=== PATIENT | female | born 1955 | race Caucasian/White ===

== ENCOUNTER 2019-03-08 21:46 | Inpatient (IN) ==
[2019-03-08] MEDS ORDERED: VANCOMYCIN 1 GM/NS 1 GM/250 ML IVPB IV ONE (22:35)
[2019-03-08] MEDS ORDERED: NS 1,000 ML IV ONE (22:35)
[2019-03-08] MEDS ORDERED: ZOSYN 4.5 GM in NS 100 ML IV ONE (22:35)
[2019-03-09 00:26] LABS: BASO# 0.03 X1000 (0.0-0.2); BASO% 0.2 % (0.0-0.8); HEMATOCRIT 40.6 % (37.0-47.0); HEMOGLOBIN 12.5 g/dL (12.0-16.0); IMM GRAN% 0.7 % (0.0-0.5); LYMPH# 2.24 X1000 (1.2-3.4); LYMPH% 15.7 % (20.5-51.1); MCH 27.9 PG (27-31); MCHC 30.8 g/dL (33-37); MCV 90.6 FL (81-99); MONO# 0.89 X1000 (0.11-0.59); MONO% 6.2 % (1.7-9.3); MPV 9.3 FL (7.4-10.4); NEUT% 77.2 % (42.2-75.2); PLT 265 X1000 (130-400); RBC 4.48 XMIL (4.2-5.4); RDW 16.5 % (11.5-14.5); WBC 14.26 X1000 (4.8-10.8)
[2019-03-09 00:31] LABS: INR 1.33; PROTIME 17.6 Seconds (11.0-16.0)
[2019-03-09 00:32] LABS: PTT 34.5 Seconds (22.3-41.8)
[2019-03-09 00:51] LABS: ALB/GLOB RATIO 1.3; ALBUMIN 3.4 g/dL (3.5-5.0); CALCIUM 7.5 mg/dL (8.8-10.2); CREATININE 2.9 mg/dL (0.5-0.9); TOTAL BILIRUBIN 0.87 mg/dL (0.20-1.00); TOTAL PROTEIN 6.1 g/dL (6.3-8.3)
[2019-03-09 00:55] LABS: POTASSIUM 6.5 mmol/L (3.5-5.1)
[2019-03-09] MEDS ORDERED: NS 1,000 ML IV ONE ×2 (01:05→01:32)
[2019-03-09 01:11] LABS: CK INDEX 2.1 (0.0-2.5); CK-MB 34.89 ng/mL (0.0-5.0)
[2019-03-09] MEDS ORDERED: DUONEB (A & A) INH ONE (01:38)
[2019-03-09] MEDS ORDERED: CALCIUM GLUCONATE 1 GM in NS 50 ML IV ONE (01:38)
[2019-03-09] MEDS ORDERED: D50W SYRINGE IV ONE (01:40)
[2019-03-09] MEDS ORDERED: HUMULIN R IV ONE (01:41)
[2019-03-09] MEDS ORDERED: KAYEXALATE PR ONE (01:48)
[2019-03-09] MEDS ORDERED: ALBUTEROL 0.5% INH CONC FOR HYPERKALEMIA INH ONE (02:05)
--- NOTE | 2019-03-09 02:10 | PROVIDER DOCUMENTATION ---
This chart was entered by Octavia Rodriguez Scribe, acting as scribe for Reid Singer MD. [facility]-General Adult - General Chief Complaint: Post Op Complaint Stated Complaint: post op gb Time Seen by Provider: 03/08/19 22:28 Source: EMS Allergies/Adverse Reactions: Patient Allergies Allergy/AdvReac Type Severity Reaction Status Date / Time No Known Allergies Allergy Verified 03/08/19 22:43 Home Medications: Home Medication List Medication Instructions Recorded Confirmed Last Taken Type Diazepam [Valium] 10 mg PO BID 09/27/17 03/09/19 11/07/17 08:00 History Doxepin [Sinequan] 10 mg PO QHS 09/27/17 03/09/19 11/06/17 20:00 History Duloxetine [Cymbalta] 30 mg PO DAILY 09/27/17 03/09/19 11/06/17 10:30 History Ergocalciferol (Vitamin D2) 50,000 unit PO Q7D 09/27/17 03/09/19 11/05/17 History [Vitamin D] Gabapentin 600 mg PO BID 09/27/17 03/09/19 11/07/17 08:00 History Levothyroxine [Synthroid] 150 microgm PO DAILY 09/27/17 03/09/19 11/07/17 08:00 History Hydrocodone/APAP 10 mg/325 mg 1 ea PO Q4H PRN PRN #20 tab 11/16/17 03/09/19 Unknown Rx [Schoenchen-10] Methocarbamol 1 tab PO TID 03/09/19 03/09/19 Unknown History - History of Present Illness -Gen Adult Nature of Presenting Problems: 63yof presents to ED by EMS cc unconscious for hrs prior to EMS arriving. EMS re ports said pt had gallbladder surgery at [facility] on 03/07/19 she is hard to wake up today after taking pain pills. 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 pt was responsive initially here but then start becoming more confused. report pain in the incision site, denies other complaints. Location of Pain/Injury: reports: upper body (RUQ) Pain Radiation: reports: no radiation Quality of Pain: reports: aching Severity: reports: moderate Onset/Duration: reports: unsure Timing: reports: still present, intermittent Context/Activities at Onset: reports: other (had gallbladder surgery yesterday) Modifying Factors: worse with: movement Similar Symptoms Previously?: No Recently seen or treated by another doctor?: Yes Review of Systems - Adult - REVIEW OF SYSTEMS - ADULT Constitutional: reports: no symptoms reported Eyes: reports: no symptoms reported Ears, Nose, Mouth & Throat: reports: no symptoms reported Cardiovascular: reports: no symptoms reported Respiratory: reports: shortness of breath Gastrointestinal: reports: see HPI, abdominal pain. denies: diarrhea, vomiting Genitourinary: reports: no symptoms reported Musculoskeletal: reports: no symptoms reported Integumentary: reports: no symptoms reported Neurological: reports: see HPI Past History - Adult - PAST MEDICAL HISTORY-ADULT Review of Records: reports: Old Records Reviewed, Nursing Assessment Review, Medications Reviewed, Social history reviewed & non-contributory. Major Childhood Illnesses: reports: denies history Cardiovascular: reports: denies history Respiratory: reports: denies history Gastrointestinal: reports: denies history Obstetrical/Gynecological: reports: denies history Genitourinary: reports: denies history Musculoskeletal: reports: denies history Neurological: reports: denies history Endocrine/Immune: reports: denies history Other Conditions: reports: denies history - IMMUNIZATION STATUS Childhood Immunizations: See Nurse Assessment Flu Vaccine: See Nurse Assessment - FAMILY HISTORY Family History: reviewed, not pertinent Physical Exam-General - PHYSICAL EXAM-ADULT Initial Vital Signs Reviewed: Yes - CONSTITUTIONAL General Appearance: obese, lethargic - EYES Eyes: PERRL/EOMI. negative: meningismus, photophobia - HEAD, EARS, NOSE, MOUTH & THROAT HENMT: moist mucous membranes, normal ENT inspection, TMs normal, pharynx normal - NECK Neck: non-tender, full range of motion, supple, normal inspection. negative: carotid bruit - RESPIRATORY Respiratory: chest non-tender, lungs clear, normal breath sounds. negative: crackles, rales, rhonchi, stridor, wheezing - CARDIOVASCULAR Cardiovascular: normal peripheral pulses, regular rate, rhythm, no edema, other (hypotensive) - GASTROINTESTINAL (ABDOMEN) Abdominal Exam: normal bowel sounds, soft, tenderness (RUQ around surgery site). negative: non tender, guarding, rigid, rebound - LYMPHATIC Lymphatic: negative: enlargement, striations - MUSCULOSKELETAL Back Exam: normal inspection, no CVA tenderness, no vertebral tenderness. negative: ecchymosis, scoliosis Extremity: non-tender, other (cold to touch). negative: deformity, erythema - SKIN Integumentary: normal color, normal turgor, diaphoresis, other (cold to touch) - NEUROLOGIC Neurologic: other (confused) - PSYCHIATRIC Psych/Mental Status: other (confused) Progress - PLAN OF CARE/RESULTS Progress/Plan/Lab Results: Vital Signs - 8 hr 03/08/19 22:13 Temperature 98.5 F Pulse Rate 73 Respiratory Rate 22 Blood Pressure 57/25 Orders Category Date Time Status Cardiac Monitoring DIRECTED Care 03/08/19 22:34 Active IV Insertion ORDERED Care 03/08/19 22:34 Completed Notify MD of + Sepsis Screen NOW Care 03/08/19 22:34 Active Notify Physician As Ordered Care 03/08/19 22:34 Active CHEST-1 VIEW [RAD] Stat Exams 03/08/19 22:34 Taken BLOOD CULTURE [BLDCUL] Stat Lab 03/08/19 22:34 Uncollected CBC WITH DIFF [HEME] Stat Lab 03/08/19 22:34 Uncollected CK PROFILE [SP CHEM] Stat Lab 03/08/19 22:34 Uncollected COMPREHENSIVE METABOLIC PANEL [CHEM] Stat Lab 03/08/19 22:34 Uncollected LACTATE, PLASMA [CHEM] Q3H Lab 03/08/19 22:45 Uncollected LACTATE, PLASMA [CHEM] Q3H Lab 03/09/19 01:45 Uncollected LACTATE, PLASMA [CHEM] Q3H Lab 03/09/19 04:45 Uncollected PROTIME WITH INR [COAG] Stat Lab 03/08/19 22:34 Uncollected PTT [COAG] Stat Lab 03/08/19 22:34 Uncollected TROPONIN T Stat Lab 03/08/19 22:34 Uncollected URINALYSIS W/POSS RFLX CULT [URINALYSIS] Stat Lab 03/08/19 22:34 Uncollected 0.9% Sodium Chloride Inj [Ns] 1,000 ml Med 03/08/19 22:35 Active IV 999 mls/hr Piperacillin/Tazobactam [Zosyn] 4.5 gm Med 03/08/19 22:35 Active 0.9% Sodium Chloride Inj [Ns] 100 ml IV NOW Vancomycin 1 gm/Ns Med 03/08/19 22:35 Active 1 gm in 250 ml IV NOW Oxygen Device Stat Oth 03/08/19 22:34 Active EKG [EKG] Stat Ther 03/08/19 22:38 Ordered Pt came in with AMS, BP 57/25. SEPSIS protocol initiated, fluid vanc and zosyn ordered. Central line placed by myself with Dr. Vic galdamez supervision. Labs come back showed elevated troponin, cardiology Dr. Melgoza consulted and he said troponin high due to sepsis and CARIN. T wave inversion in V2, V3 not significant. K elevated, Ca gluconate/Albuterol/IV insulin/D50W ordered. Pt care discussed with the hospitalist Dr. Sutherland in the ER and pt accepted. liver enzyme elevated likely due to hypoperfusion. Pt condition is critical with multiorgan failure. BP improving with fluid, will consider pressor if BP MAP drop below 65. Dr. Sutherland will order CT abdomen and pelvis Pt care discussed with the supervising physician Dr. Vic galdamez. Result Diagrams: 03/09/19 07:15 03/09/19 12:31 - EKG 1 Time of EKG reading by physician:: 22:42 EKG Read and Signed by:: Reid Singer Rate: 72 Rhythm: NSR QRS: normal ST Wave: normal Prior EKG Comparison: changes noted Comments: T wave inversion V2, V3 Procedures - CENTRAL LINE Consent Form Signed?: No (AMS) Time-Out Verification Completed?: Yes Central Line Lumen: triple Central Line Procedure Prep: Hand Hygeine Performed, Kit Utilized, Chloraprep, Sterile Body Drape Placed Patient Position (To prevent Air Embolism): Trendelenburg (SC/IJ) Central Line Position: internal jugular (R) Ultrasound Guided?: Yes Hat, mask, sterile gown, & sterile gloves worn by physician?: Yes Site scrubbed vigorously for 30 seconds? (Groin: 2 min): Yes Anesthetic: 1% Volume of Anesthetic (ml's): 4 Post Procedure: Sutured in place, Sterile field maintained, BioPatch placed, Sterile dressing applied, Blood aspirated from each lumen, Placement verfied by XRAY Complications: none Procedure Comment: Under supervision of Dr. Vic Galdamez Departure - Departure Date of Disposition Decision: 03/09/19 Time of Disposition Decision: 01:49 DIAGNOSIS: MODS (multiple organ dysfunction syndrome), Elevated troponin, CARIN (acute kidney injury) Altered mental status Qualifiers: Altered mental status type: unspecified Qualified Code(s): R41.82 - Altered mental status, unspecified Disposition: ADMITTED INPATIENT 09 Certified Medical Emergency: Emergent Condition: Critical - Critical Care Note This patient required my direct & personal management of CC.: Yes Total Time (mins): 60 Critical Care Statement: This patient required my direct personal management to treat or rule out processes, the absence of which, could potentiallly result in sudden, clinically significant life or limb threatening deterioration. Attestation - Physician/ CLARENCE Attestation Patient care was provided by Advanced Practice Provider:: No The physician spent face to face time with patient:: Yes Advanced Practice Provider documentation review:: Supervising physician onsite and consulted in the evaluation and care of this patient. The physician did have a face to face encounter with the patient. This chart was documented by the indicated scribe, (Octavia Rodriguez Scribe) and accurately reflects the services I performed and decisions made by me, Reid Sanders MD, as attested by the provider's signature.
[2019-03-09] MEDS ORDERED: NS 1,000 ML IV SCH (02:30)
--- NOTE | 2019-03-09 03:06 | HISTORY AND PHYSICAL ---
PRIMARY CARE PHYSICIAN: Arthur Mckinney MD. HISTORY OF PRESENT ILLNESS: This is a chronically ill-appearing 63-year-old female who is pretty much confused and not well responding, and I was called by the ER doctor because this patient has apparently been unconscious for 6 hours prior to EMS arriving. The patient is confused and not able to provide any pertinent information. All the H and P was done with an ER note and the ER doctor information provided. Apparently, the EMS reports that the said the patient had a cholecystectomy performed 2 days ago [facility] by Dr. Vic Ohara. Apparently she was given some pain medication and she was really hard to wake up today. Apparently the EMS reported that they gave 2 doses of Narcan and the patient woke up. The patient was responsive initially, but then started becoming more confused with pain in the incision site, so we were called for admission. But as was mentioned before she is not able to tell me any pertinent information. PAST MEDICAL HISTORY: Apparently she has been referred from Dr. Zelaya's office for poorly differentiated pulmonary adenocarcinoma. PAST SURGICAL HISTORY: Not possible to obtain. REVIEW OF SYSTEMS: Not possible to obtain. SOCIAL HISTORY: Not possible to obtain. ALLERGIES: No known drug allergies. PHYSICAL EXAMINATION: VITAL SIGNS: Temperature 98.5 degrees, heart rate 88, respiratory rate 16, blood pressure 94/64, O2 saturation 100% on 2 L nasal cannula. GENERAL: This is a chronically ill-appearing 63-year-old female lying in bed in no acute distress. CARDIOVASCULAR: S1 and S2 heard. No murmurs, gallops or rubs. Regular rate and rhythm. RESPIRATORY: Coarse breath sounds noted in both pulmonary bases. The patient is not using any accessory muscles or having work of breathing. ABDOMEN: Is a little bit distended. Mildly tender to palpation in the right upper quadrant. A small incision is noted in the abdomen, clean and noninfected. No signs of peritoneal irritation. EXTREMITIES: No clubbing, cyanosis or edema. Peripheral pulses present in both legs. NEUROLOGICAL: The patient is definitely obtunded and does not answer any questions. Speech is not coherent. She moves all 4 extremities spontaneously. LABORATORY DATA: White cell count 14.26, hemoglobin 12.5, hematocrit 40.6, platelets 265,000. Sodium 137, potassium 6.52, chloride 104, creatinine 1.9, with AST and ALT elevated at 570 and 300. Troponin is positive at 0.340. ASSESSMENT AND PLAN: 1. Metabolic encephalopathy. 2. Multiorgan failure including acute kidney injury and transaminitis with elevated troponins. This patient in brief has had surgery and she was found unresponsive so she was brought to the emergency department. I do not know about what has caused this problem with mental status. The differential is multifactorial. The patient is not able to provide any more information, so we have a patient with acute kidney injury with elevated potassium 6.5, with elevated creatinine of 2.9. Also we have a patient with elevated AST and ALT as well elevation of troponins. I think all this is caused by hypotension, we are going to start aggressive fluid resuscitation and we are going to send this patient to the intensive care unit. We will see if with hydration her creatinine improves some. We will continue to check BMP. We think that the elevated liver function tests are related to hypotension so as we mentioned before we will continue with IV fluids. Because of recent surgery and signs of sepsis, I prefer to go ahead and do a CT of the thorax, abdomen and pelvis and we will go from there. Will start antibiotics because I think she has developed septic shock so Zyvox and Zosyn renally dosed will be provided. Urine and blood cultures ordered. Will consult Pulmonary and Nephrology. 3. Hyperkalemia. We will provide 1 dose of Kayexalate rectal. 4. For transaminitis we are going to continue checking CMP daily and we will go from there. 5. Critical care time with this patient was 35 minutes. cc: MD HAIM Lewis
--- NOTE | 2019-03-09 05:39 | Diag Imaging Result Doc PS360 ---
EXAM: CHEST-1 VIEW HISTORY: sepsis TECHNIQUE: Single view COMPARISON: 11/23/2017 FINDINGS: Poor inspiratory effort. The heart is enlarged. There is central vascular prominence. There are no infiltrates. No effusion identified. IMPRESSION: Cardiomegaly with central vascular prominence. No definite pneumonia. Electronically signed by Alfie Narayan 03/09/2019 5:36 AM
--- NOTE | 2019-03-09 05:42 | Diag Imaging Result Doc PS360 ---
EXAM: CHEST-PORTABLE HISTORY: Central Line Placement TECHNIQUE: Chest single view COMPARISON: 10:45 PM on 03/08/2019 FINDINGS: Interval placement of a right jugular line. The tip overlies the right atrium. No pneumothorax. Poor inspiratory effort. Heart is prominent and there are central vascular distention. IMPRESSION: No postprocedural pneumothorax. Electronically signed by Alfie Narayan 03/09/2019 5:39 AM
[2019-03-09 06:13] LABS: URINE SOURCE CATH
[2019-03-09 06:19] LABS: BILIRUBIN URINE NEGATIVE (NEGATIVE); BLOOD URINE MODERATE (NEGATIVE); COLOR YELLOW; GLUCOSE URINE NEGATIVE (NEGATIVE); KETONE URINE NEGATIVE (NEGATIVE); LEUKOCYTES URINE NEGATIVE (NEGATIVE); NITRITE URINE NEGATIVE (NEGATIVE); PH URINE 5.5; PROTEIN URINE 100 mg/dL (NEGATIVE); SP GRAVITY URINE 1.016; TURBIDITY URINE HAZY (CLEAR); UROBILINOGEN URINE NORMAL (NORMAL)
[2019-03-09] MEDS ORDERED: HEPARIN SUBQ SCH (06:23)
[2019-03-09] MEDS ORDERED: ZOFRAN IV PRN (06:23)
[2019-03-09 06:43] LABS: UR EPITHELIAL CELLS <10 /HPF (<10); URINE BACTERIA NEGATIVE /HPF; URINE RBC <10 /HPF (<10); URINE WBC <10 /HPF (<10)
--- NOTE | 2019-03-09 07:01 | EKG Report ---
Test Performed on : 03/08/2019 10:42:42 PM Test Reason : unresponsive Blood Pressure : / mmHG Vent. Rate : 072 BPM Atrial Rate : 073 BPM P-R Int : 000 ms QRS Dur : 082 ms QT Int : 416 ms P-R-T Axes : 000 065 -26 degrees QTc Int : 455 ms Accelerated Junctional rhythm. ST & T wave abnormality, consider inferior ischemia ST & T wave abnormality, consider anterior ischemia Abnormal ECG When compared with ECG of 10-OCT-2017 09:36, Junctional rhythm. has replaced Sinus rhythm. T wave inversion now evident in Inferior leads T wave inversion now evident in Anterior leads Unconfirmed Result
[2019-03-09 07:12] LABS: URINE CASTS NONE SEEN; URINE CRYSTALS NONE SEEN; URINE SMALL ROUND CELLS NONE SEEN; URINE YEAST NONE SEEN
[2019-03-09] MEDS: NS 1,000 ML IV SCH ×2 (07:24→13:30)
[2019-03-09 07:43] LABS: BASO# 0.01 X1000 (0.0-0.2); BASO% 0.1 % (0.0-0.8); HEMOGLOBIN 11.9 g/dL (12.0-16.0); IMM GRAN# 0.05 X1000 (0.0-0.04); IMM GRAN% 0.4 % (0.0-0.5); LYMPH# 2.18 X1000 (1.2-3.4); LYMPH% 16.8 % (20.5-51.1); MCH 28.6 PG (27-31); MCHC 31.3 g/dL (33-37); MCV 91.3 FL (81-99); MONO# 0.93 X1000 (0.11-0.59); MONO% 7.2 % (1.7-9.3); MPV 9.5 FL (7.4-10.4); NEUT# 9.83 X1000 (1.4-6.5); NEUT% 75.5 % (42.2-75.2); PLT 239 X1000 (130-400); RBC 4.16 XMIL (4.2-5.4); RDW 16.3 % (11.5-14.5)
[2019-03-09] MEDS: ZYVOX 600 MG/D5W 600 MG/300 ML IVPB IV SCH ×2 (07:44→20:45)
[2019-03-09] MEDS: ZOSYN 2.25 GM in NS 50 ML IV SCH ×2 (07:44→12:28)
--- NOTE | 2019-03-09 07:44 | Diag Imaging Result Doc PS360 ---
EXAM: CT THORAX/ABD/PELVIS W/O CON 03/09/2019 HISTORY: recent cholecystectomy, sepsis, multiorgan failure TECHNIQUE: This exam was performed using automated exposure control, adjustment of mA or kV according to patient size, and/or use of iterative reconstruction technique. COMMENT: The current examination is compared with the previous study of the chest dated 06/29/2018, there are no previous abdominal studies. There are calcifications present in the aorta and right brachiocephalic artery. There is a right internal jugular central venous catheter with its tip in the right atrium. There is some increase in the heart size since the previous examination which appears to be largely due to dilatation of the right atrium. There are some prominent prevascular nodes including one adjacent to the aortic arch on the left measuring up to 19 mm. There is a aorticopulmonary window node which measures over 2.3 cm. The latter has not changed significantly since the previous study. There are some calcifications in the subcarina which is presumably due to granulomatous disease. There are patchy opacities present in both lower lobes particularly the right lower lobe. There is some volume loss in the right middle lobe. These findings were not present on the previous examination of 06/29/2018. There has been right upper lobectomy. There are some spondylotic changes in the thoracic spine as well as rib deformities on the right which are probably a result of the previous thoracotomy. ABDOMEN/pelvis without contrast: There has been recent cholecystectomy. There appears to be some small seroma or hematoma formation in the gallbladder fossa. This is also present in the anterior pararenal space on the right. There is no evidence of nephrolithiasis or hydronephrosis. There is retained solid and liquid contents in the stomach. Some fluid is present in the duodenal bulb. The small bowel is not distended. There is some fluid and contrast present in the colon. The appendix is not distended. The abdominal aorta is calcified but not distended. At the time of the thoracic study of 06/29/2018, which was performed with contrast, there was considerable calcific and noncalcific atheroma in the infrarenal abdominal aorta with narrowing of the lumen by at least 50%. The spleen and adrenal glands are not enlarged. The pancreas is grossly normal in appearance given the lack of contrast. There is a small amount of gas present in the anterior abdominal wall which is presumably due to the recent laparoscopic procedure. There is no evidence of free fluid. There has been previous hysterectomy. The urinary bladder is slightly distended. There is no evidence of mucosal thickening in the bladder. There is a fairly prominent external iliac node on the right measuring almost 12 mm in AP dimension. This is of uncertain significance. There are some degenerative disc and facet changes in the lumbar spine. No acute bony abnormalities are demonstrated. IMPRESSION: 1. Atelectasis versus pneumonia in the lower lobes particularly the right lower lobe. Stable mediastinal adenopathy. 2. Postsurgical changes of recent cholecystectomy. Atherosclerotic changes in the aorta particularly in the infrarenal abdominal aorta. 3. Slight distention of the stomach and duodenal bulb. The possibility of gastroparesis should be considered. No evidence of bowel obstruction. 4. Increased heart size. Electronically signed by Jesu Sofia 03/09/2019 7:42 AM
[2019-03-09 08:15] LABS: ALBUMIN 3.1 g/dL (3.5-5.0); CALCIUM 7.4 mg/dL (8.8-10.2); CREATININE 2.9 mg/dL (0.5-0.9); TOTAL BILIRUBIN 0.77 mg/dL (0.20-1.00); TOTAL PROTEIN 6.2 g/dL (6.3-8.3)
[2019-03-09] MEDS: LEVOPHED 8 MG in D5 1/2 NS 250 ML IV SCH (08:20)
[2019-03-09 09:22] LABS: BE -14.4 mmoll (-3.0-3.0); BLOOD TYPE ARTERIAL; HCO3-(ACT) 13.6 mmoll (20.0-26.0); PO2(98.6) 89 mmHg (60-100); SAMPLE BLOOD; SAO2 97.3 % (95.0-100.0)
[2019-03-09 09:23] LABS: ALLEN TEST YES; O2HB 94.5 % (95.0-99.0); THB 13.5 g/dL (11.5-17.4)
[2019-03-09 09:27] LABS: pH(98.6) 6.98 (7.35-7.45)
[2019-03-09 09:28] LABS: MODALITY PRB; PCO2(98.6) 78 mmHg (35-45)
[2019-03-09] MEDS: ALBUTEROL 0.5% INH CONC FOR HYPERKALEMIA INH SCH ×2 (09:40→12:45)
[2019-03-09] MEDS: D50W SYRINGE IV SCH ×2 (09:47→12:29)
[2019-03-09] MEDS: HUMULIN R IV SCH ×2 (09:48→12:28)
--- NOTE | 2019-03-09 10:23 | PROGRESS NOTE ---
DATE: 03/09/2019 SUBJECTIVE: Ms. Palacios is a 63-year-old, female who is seen today in the ICU. The son was at the bedside at the time of the encounter. Ms. Palacios is not able to give us any interim history. Per the nursing staff, she has been stable since admission. However, the blood pressure was persistently low so she was started on Levophed. Per the daughter, Ms. Palacios had laparoscopic gallbladder 3 days ago, and was sent home at about 4:00 in the evening. She was doing well. Last time, the son saw her was yesterday at about midday. He could tell that the mother was a little bit slow in reaction, and could tell that she had taken some medication maybe for pain. Later on in the evening, the father called him saying that he could not arouse the mother. EMS brought her. I understand she was given 2 doses of Narcan which woke her up, and then she went back to sleep. OBJECTIVE: Currently, her vitals blood pressure was 110/80, and this is on Levophed, pulse of 83, respirations 15, temperature is 97.7 degrees. General: Ms. Palacios is a 63-year-old, female. She is in bed. She does not seems to be in any distress. HEENT: Mucosa is pink and moist. Anicteric. Acyanotic. Neck: Neck is supple and short. Chest: There is good air entry bilaterally. There are no crepitations. No rhonchi. Cardiovascular: Regular rate and rhythm. No murmurs, no rubs, no gallops. GI: Abdomen is soft and is distended. Bowel sounds are present, but hypoactive. There are some dressings over the anterior abdominal wall suggestive of the recent laparoscopic surgery. Extremities: No pedal edema. Distal pulses are present. 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 Eyes are closed. Will only respond with barely slightly eye opening to extreme painful stimulation. She will also barely move the lower extremities to extreme painful stimulation. No verbal response. Current. LABORATORY DATA: WBC is down to 13.00, hemoglobin is 11.9, and platelet count of 239,000. Chemistry is also reviewed. Potassium is 6.0, creatinine is 2.9. AST is up to 1110, AST is 437. Troponin is coming down. So far, blood cultures are still pending. CURRENT MEDICATIONS: Include Zyvox and Zosyn as antimicrobials. IMAGING STUDIES: A CT scan of the chest, abdomen, and pelvis does show atelectasis versus pneumonia. Postsurgical changes of recent cholecystectomy. There is atherosclerotic changes in the aorta particularly in the infra renal abdominal aorta. The abdomen is slightly distended, possibility of gastroparesis and increased heart size. ASSESSMENT: 1. Persistent hypotension on presentation, presumably due to medication side effects (pain medication). The patient has been fluid resuscitated. She is also on vasopressor and because possibility of infection cannot be totally ruled out she is being covered with broad- spectrum IV antibiotics. 2. Altered mental status, presumably prescription drug side effects (encephalopathy) superimposed ischemic brain injury is also a possibility. We are going to continue neurological evaluation as ordered. 3. Acute kidney injury, most likely ATN from ischemic injury to the kidneys. Nephrology has been consulted. We are going to continue monitoring. 4. Transaminitis likely due to ischemic liver disease. We will also get GI to evaluate the patient. 5. Troponin elevation most likely due to demand mismatch. Troponin seems to be trending down. 6. Acute hypercarbic respiratory failure, pCO2 is up to 78. We are going to put the patient on BiPAP and repeat the ABG in about 4 hours. Pulmonary Medicine has been consulted. 7. Morbid obesity with suspicion of obesity hypoventilation syndrome. 8. Recent status post laparoscopic cholecystectomy is noted. PLAN: In general, I think Ms. Palacios is presumed to have overdosed on her pain medication. Subsequently, she became altered and might have aspirated and developed aspiration pneumonia. Blood pressure was remarkably low for extended period of time. As a consequence, she has developed what we think is an ischemic liver injury and ischemic kidney injury and possibly ischemic/anoxic brain injury. We are going to continue with antibiotic coverage, fluid resuscitation, avoid any nephrotoxic and hepatotoxic medications. Get the other subspecialties to evaluate her. I have spoken to the son who was at the bedside at the time of the encounter. Critical time 45 minute cc: MD HAIM Monteiro
[2019-03-09] MEDS ORDERED: DIPRIVAN 1% ONE (12:22)
--- NOTE | 2019-03-09 12:31 | Diag Imaging Result Doc PS360 ---
EXAM: CHEST-PORTABLE 03/09/2019 HISTORY: Verify ET TECHNIQUE: AP portable at 1221 COMMENT: Endotracheal tube is at the thoracic inlet. There is a right internal jugular central venous catheter with its tip in the right atrium. The inspiration is less optimal than on 03/09/2019 at 0127. There is some atelectasis particularly in the left lower lobe. IMPRESSION: Poor inspiration. Left lower lobe atelectasis. Electronically signed by Jesu Sofia 03/09/2019 12:28 PM
[2019-03-09 13:12] LABS: ALBUMIN 2.8 g/dL (3.5-5.0); CALCIUM 6.9 mg/dL (8.8-10.2); CREATININE 3.3 mg/dL (0.5-0.9); PHOSPHORUS 6.8 mg/dL (2.7-4.5); POTASSIUM 4.2 mmol/L (3.5-5.1)
[2019-03-09] MEDS ORDERED: ATIVAN IV ONE (14:08)
[2019-03-09] MEDS ORDERED: MORPHINE IV ONE (14:08)
[2019-03-09] MEDS: MAXIPIME 1 GM in NS 50 ML IV SCH (14:10)
[2019-03-09] MEDS: SODIUM BICARBONATE 8.4% 150 MEQ in D5W 1,000 ML IV SCH (14:10)
--- NOTE | 2019-03-09 14:14 | ECHO REPORT ---
ORDER DATE: 03/09/2019 INTERPRETING PHYSICIAN: Dr. Justin Ann ECHOCARDIOGRAPHIC MEASUREMENTS: 1. Interventricular septum 1.1. 2. Left ventricular posterior wall 1.1. 3. Diastolic diameter 3.7. 4. Right ventricle 5. 5. Left atrium 3.8. 6. Aorta 3.1. SUMMARY OF THE 2-DIMENSIONAL IMAGIN. Right ventricle is dilated with severely reduced right ventricular systolic function. Right ventricle apex is akinetic. Cannot rule out a small clot. 2. Normal left ventricular cavity size. Estimated ejection fraction of 60%. 3. Aortic valve leaflets are trileaflet. 4. Mitral valve was normal. 5. Tricuspid valve was normal. 6. There is no aortic stenosis or regurgitation. 7. There is mild mitral regurgitation. 8. Mild pulmonary regurgitation. 9. Mild tricuspid regurgitation. 10. Peak velocity across the tricuspid valve was 3.5 m/sec. 11. Pulmonary artery systolic pressure of 60 mmHg. 12. Aortic valve leaflets are trileaflet. 13. There is no pericardial effusion. cc: MD Justin Rosenbaum MD
--- NOTE | 2019-03-09 14:39 | Diag Imaging Result Doc PS360 ---
EXAM: CT HEAD W/O CONTRAST 03/09/2019 HISTORY: Possible bleed TECHNIQUE: This exam was performed using automated exposure control, adjustment of mA or kV according to patient size, and/or use of iterative reconstruction technique. COMMENT: There are no previous studies available for comparison. There is no evidence of bleed mass effect or abnormal extra-axial fluid collection. There is some head tilt producing asymmetry in the images. The calvarium is intact. The visualized paranasal sinuses are clear. IMPRESSION: No definite evidence of acute intracranial disease. Electronically signed by Jesu Sofia 03/09/2019 2:37 PM
[2019-03-09] MEDS ORDERED: DILUENT IV ONE ×3 (14:53)
[2019-03-09] MEDS ORDERED: NS IV ONE ×3 (14:53)
[2019-03-09] MEDS ORDERED: ACTIVASE IV ONE ×4 (14:53→15:00)
[2019-03-09] MEDS ORDERED: MISC. PHARMACY COMMUNICATION SCH (15:00)
[2019-03-09] MEDS ORDERED: STERILE WATER IV ONE (15:00)
[2019-03-09 15:16] LABS: INR 1.32; PROTIME 17.5 Seconds (11.0-16.0)
--- NOTE | 2019-03-09 15:55 | NEPHROLOGY CONSULTATION ---
DATE: 03/09/2019 REASON FOR CONSULTATION: Acute kidney injury and hyperkalemia. HISTORY OF PRESENT ILLNESS: Ms. Palacios is not able to give any history. Chart reflects that she had outpatient laparoscopic cholecystectomy 2 days prior to admission. She was brought into the emergency room by EMS because of unresponsiveness. Her initial evaluation in the emergency room found her blood pressure 57/25 with heart rate 73, respiration 22. Initial laboratory data found potassium 6.5 with creatinine 2.9. She has been treated with volume resuscitation and empiric therapy for presumed sepsis, as well as possible narcotic-induced coma. Her potassium was treated appropriately, and she has been given IV fluids. In this context, her potassium is down normal, but her creatinine has risen from 2.9 to 3.3. Urine output recorded at 500 mL. She had imaging performed on admission which disclosed bibasilar atelectasis, but no hydronephrosis. Significant atherosclerosis in the distal abdominal aorta. PAST MEDICAL HISTORY: As above. She also has a history of obesity, hypertension, possible adenocarcinoma of the lung. MEDICATIONS: Reviewed. ALLERGIES: None listed. SOCIAL HISTORY: Otherwise not obtainable. FAMILY HISTORY: Otherwise not obtainable. PHYSICAL EXAMINATION: Vital Signs: Blood pressure 132/60, heart rate 89, respirations 16, afebrile. Generally: No acute distress. Obtunded. HEENT: Will moan and move her eyes and open her eyes with vigorous stimulus, but does not verbalize. Conjunctivae are pink. Pupils are equal. Neck: Neck veins are not visible. Trachea is midline. Heart: Regular. Lungs: Equal. No crackles. Abdomen: Soft, nontender. Bowel sounds are present. Extremities: Have 2+ edema. No clubbing or cyanosis. IMPRESSION: Acute kidney injury. Presumed. Volume resuscitation as appropriate. She has had appropriate imaging. Her potassium has been corrected appropriately. No changes today. cc: Bladimir Key MD
--- NOTE | 2019-03-09 16:27 | GASTROENTEROLOGY CONSULTATION ---
DATE: 03/09/2019 REASON FOR CONSULTATION: Elevated liver function tests. HISTORY OF PRESENT ILLNESS: This is a 63-year-old female who recently had laparoscopic cholecystectomy on 03/07/[address] Ohara. Surgery was done as an outpatient. She was at home recovering. She was taking some pain medication postoperatively. The son had checked on the patient and noticed that she was drowsy and not long after she was found to be unconscious, brought in by EMS. Patient was given Narcan. She did respond but became more confused. She had to be intubated. She is currently on mechanical ventilation. During workup patient was found to have elevated liver function tests, AST 1110, ALT 437, total bilirubin 0.77, alkaline phosphatase 89. PAST MEDICAL HISTORY: Obtained from the chart. Apparent pulmonary adenocarcinoma following with Dr. Zelaya. PAST SURGICAL HISTORY: Recent cholecystectomy on 03/07/2019. Full details of medical history unavailable at present time. There was no family at the bedside. Patient is intubated. ALLERGIES: No known drug allergies. HOME MEDICATIONS: Valium 10 mg twice a day, Sinequan 10 mg every night, Cymbalta 30 mg daily, vitamin D every 7 days, gabapentin 600 mg twice a day, Vilas 10 every 4 hours as needed, Synthroid 150 mcg daily, methocarbamol 1 tablet 3 times a day, Robaxin 750 mg 3 times a day. REVIEW OF SYSTEMS: Per chart. PHYSICAL EXAMINATION: Vital Signs: Temperature is 97.7 degrees, pulse 89, respirations 16 per mechanical ventilation, blood pressure 132/60. General: The patient is intubated on mechanical ventilation. She does arouse. She does mouth some words. She does follow commands. Cardiovascular: Regular rate and rhythm. Respiratory: Lung sounds coarse otherwise good breath sounds. Abdomen: Some tenderness. Patient has recent laparoscopic cholecystectomy. She has incisions intact with dressings intact. Extremities: No lower extremity edema noted. DIAGNOSTIC RESULTS: Laboratory. Hematology. WBC 13.00, hemoglobin 11.9, hematocrit 38.0, MCV 91.3, platelets 239,000. Chemistry. Sodium 137, potassium 4.2, chloride 105, CO2 17, BUN 34, creatinine 3.3, glucose 204, calcium 6.9, phosphorus 6.8, AST 1110, ALT 437, alkaline phosphatase 89, troponin 0.408. CT scan of the abdomen and pelvis showing atelectasis versus pneumonia. Slight distention of the stomach and duodenal bulb, possible gastroparesis. Postsurgical changes of recent cholecystectomy. Head CT showed no definite acute intracranial process. ASSESSMENT AND PLAN: 1. Hypotension. Patient on vasopressors. 2. Recent altered mental status. 3. Acute kidney injury. 4. Respiratory failure intubated on mechanical ventilation. 5. Transaminitis most likely to shock liver, ischemic liver injury. We will continue to monitor. Recommend continue resuscitation efforts. Will follow her liver function tests. In the meantime will order hepatitis profile, REANNA and iron level. Further plans to be made according to her progress. I have discussed this case with Dr. Frausto. Further plans will be made as needed. Thank you for this consultation. Dictated by COURTNEY Eisenberg for Mk Frausto MD cc: COURTNEY Rao MD
--- NOTE | 2019-03-09 16:29 | CONSULTATION ---
DATE OF CONSULTATION: 03/09/2019 IMPRESSION: 1. Mild nonspecific elevation in troponin. 2. Shock, probably cardiogenic, with echocardiography demonstrating prominent right ventricular enlargement with right ventricular systolic dysfunction with severe right ventricular hypokinesis. Given recent surgery and current electrocardiogram, I strongly suspect she may very well have had a pulmonary embolus postoperatively. 3. Elevated serum transaminases, probably related to shock. 4. Acute renal failure, probably also related to shock. RECOMMENDATIONS: 1. Patient's clinical presentation and strong suspicion for pulmonary embolus was discussed with Dr. Miller. Given acute renal failure, pursuit of contrasted chest CT is not in her best interest. There was some concern about her mental status, and it is preferred that a head CT scan be obtained to rule out any intracranial hemorrhage, after which consideration will be given to thrombolytic therapy. I strongly suspect pulmonary embolus and athrombic therapy appears to be warranted. 2. Agree with empiric coverage for possible sepsis, as you are doing. HISTORY: This 63-year-old white female with past history of non-small cell lung cancer treated with right upper lobectomy in October 2017 and recent laparoscopic cholecystectomy a few days ago was admitted to the emergency room last night with mental status changes. Patient had cholecystectomy 2 days ago via laparoscopic approach. She has had some narcotic analgesics postoperatively. She developed some confusion and drowsiness that was persistent. EMS was summoned. She had some partial response to Narcan. However, this was only transient, and patient also became confused with increased pain in the incision site. She manifested persistent hypotension, which did not respond very well to fluid administration and intravenous pressor agents were initiated. The patient developed respiratory failure that did not improve with BiPAP, and ultimately had to be intubated and started on mechanical ventilation. Urine output has been very low and lab suggests acute renal failure. She also has significantly elevated transaminases and shock liver is also suspected. She is presently on a ventilator in ICU on intravenous Levophed. Troponins were mildly elevated in nonspecific range, prompting Cardiology consultation. Upon my arrival, notification was made that her echocardiography demonstrated right ventricular enlargement with severe right ventricular hypokinesis. PAST MEDICAL HISTORY: 1. Non-small cell lung cancer. Patient is status post right upper lobectomy October 2017. Lymph nodes reportedly negative. Patient's stage was T2N0. 2. Obesity. 3. Status post recent laparoscopic cholecystectomy. ALLERGIES: She has no known drug allergies. MEDICATIONS PRIOR TO ADMISSION: As listed. SOCIAL HISTORY: Not able to obtain. FAMILY HISTORY: Negative for premature coronary disease. REVIEW OF SYSTEMS: Review of systems not able to obtain given patient on ventilator and sedate. PHYSICAL EXAMINATION: General: Reveals an obese, middle-aged female in no apparent distress, who is sedate on ventilator. Vital signs: Blood pressure 132/60, heart rate 89, oxygen saturation 96% on ventilator. HEENT exam: Mucous membranes are moist. Neck: Supple. There is central line and right internal jugular. Jugular venous distention not appreciated. Chest: Demonstrates coarse breath sounds bilaterally. Cardiac Exam: Reveals a regular rate and rhythm without appreciable murmur or gallop. Abdomen: Soft. Bowel sounds audible. Extremities: Demonstrate trace bilateral edema. LABORATORY DATA: Includes a white blood cell count 13.1, hematocrit 38.0, hemoglobin 11.9, platelet count 239. Sodium 137, potassium 4.2, chloride 105, carbon dioxide 17. BUN 34, creatinine 3.3, glucose 204. Initial CPK 0.34; followup CPK 0.408. CPK 1656, CPK MB 34.89, CPK MB index 2.1. AST 1110, ALT 437. IMAGING STUDIES: A 12 lead EKG demonstrates sinus rhythm with nonspecific ST and T-wave abnormality. There is an S evident in lead 1 with a Q inverted T-wave in lead 3. cc: Jackson Wagner MD
--- NOTE | 2019-03-09 16:45 | PROGRESS NOTE ---
DATE: 03/09/2019 SUBJECTIVE: Late morning today I had a conversation with pulmonary medicine, Dr. Langford. He had reviewed the patient and recommended intubation because of multiple comorbidities at the same time and the fact that the patient is both metabolic and respiratory acidotic and she was still not coherent enough, extremely stuporous. He thinks the patient will not be able to protect the airway for now, so she was successfully intubated. I also got a call from Cardiology about the report of the echocardiogram, which seems to suggest that the right ventricle is akinetic and a small clot could not be could not be ruled out. Taking into consideration that Ms. Palacios has been extremely hypotensive and the fact that the troponins are slightly elevated and having undergone surgery in the last 3 days it is reasonable to assume that she has had a massive PE versus a right heart massive heart attack. Her EKG did make suggestion of some remarkable T-waves inversion in the inferior leads. I discussed the case also with Dr. Ordonez, the bell spinner on consult services, who also reviewed all the information and the ancillary testing and both of us were in agreement that Ms. Palacios most likely has suffered from a massive PE and that needed to be treated as such which would mean she will need thrombolytic because she has been hemodynamically unstable and after that we will start her on heparin drip. Unfortunately Ms. Palacios has also acute kidney injury with creatinine up to in the 3 days so we cannot do a CTA of the lungs. We will do a venous studies of the lower extremities and we will also do a D-dimer. I ordered a CT scan of the head to rule out any bleed and which has come back negative. I have also contacted the pharmacy about the ideal dosing of the alteplase. I have reached out to Ms. Palacios's son (Erik Palacios) who is the same son who was at the bedside this morning at the time of my encounter with the patient. I did narrate to him about the current clinical information at hand, including the fact that the patient was hypotensive for majority of the time and that she is on a pressor and that she has been intubated and also the echocardiogram findings and the thought process that she might have a massive PE or a right heart NM and the need for a thrombolytic as well as anticoagulant. Since that is only a tentative that seems to be reasonable at this point. I also did mention to him the risk of using thrombolytic in her especially the fact that she has just done surgery. Mr. Erik Palacios was okay with the use of the lytics. I have also spoken with Dr. Guzman who is the surgeon senior functional analyst today. I notified him about Ms. Palacios and the fact that we think has she had a massive PE and the idea of wanting to use lytics. I did inquire from him if from surgery standpoint, he thought it was okay since the patient has had a laparoscopic gallbladder removal and he thinks it should be fine if there is a clear clinical indication for the lytics to be used. He did not see any contraindication from the surgery standpoint. PLAN: We are going to give 100 mg of alteplase to run for 2 hours after which we will start the patient on heparin drip. I have already discussed this with the pharmacist as well and she will be monitoring the medication. CRITICAL TIME SPENT: 1 hour. cc: Rajan Miller MD MTDLan
[2019-03-09] MEDS ORDERED: HEPARIN 25,000 UNITS/D5W 25,000 UNIT/250 ML IV.SOLN IV SCH (17:00)
[2019-03-09] MEDS ORDERED: HEPARIN IV ONE (17:00)
--- NOTE | 2019-03-09 18:07 | Diag Imaging Result Doc PS360 ---
EXAM: US RENAL 2 (RETROPER) COMPLETE - 03/09/2019 HISTORY: paula/arf TECHNIQUE: Bilateral renal ultrasound COMPARISON: None. FINDINGS: There are artifacts which limit detail. The right kidney measures 13.3 x 5.4 x 5.7 cm in size, with cortical thickness of approximately 1.2 cm. The left kidney measures 12.5 x 5.4 x 6.4 cm in size, with cortical thickness of approximately 1 cm. There is no discrete renal mass, stone, or hydronephrosis identified. The urinary bladder is decompressed by Mack catheter and is not evaluated. IMPRESSION: No visible renal abnormality. Electronically signed by Tarik Alvarez 03/09/2019 6:05 PM
[2019-03-10] MEDS: DILAUDID IV PRN ×4 (01:54→17:50)
[2019-03-10] MEDS: MAXIPIME 1 GM in NS 50 ML IV SCH ×2 (02:20→14:29)
[2019-03-10] MEDS: LEVOPHED 8 MG in D5 1/2 NS 250 ML IV SCH ×2 (02:50→17:51)
[2019-03-10] MEDS: SODIUM BICARBONATE 8.4% 150 MEQ in D5W 1,000 ML IV SCH ×2 (02:51→13:22)
[2019-03-10 04:49] LABS: ALLEN TEST YES; BE -4.3 mmoll (-3.0-3.0); BLOOD TYPE ARTERIAL; HCO3-(ACT) 21.6 mmoll (20.0-26.0); METHB 0.9 % (0.0-1.5); O2(CT) 13.2 mL/dL (15.0-23.0); O2HB 98.1 % (95.0-99.0); PCO2(98.6) 31 mmHg (35-45); PO2(98.6) 206 mmHg (60-100); SAMPLE BLOOD; SRATE 14 BPM; THB 9.2 g/dL (11.5-17.4); TVOL 600 mL; pH(98.6) 7.41 (7.35-7.45)
[2019-03-10 04:51] LABS: MODALITY VENTILATOR
[2019-03-10 06:39] LABS: INR 1.21; PROTIME 16.3 Seconds (11.0-16.0)
[2019-03-10 06:57] LABS: ALB/GLOB RATIO 0.9; ALBUMIN 2.3 g/dL (3.5-5.0); CREATININE 4.5 mg/dL (0.5-0.9); MAGNESIUM 1.4 mg/dL (1.5-2.7); POTASSIUM 2.8 mmol/L (3.5-5.1); TOTAL BILIRUBIN 0.64 mg/dL (0.20-1.00)
--- NOTE | 2019-03-10 07:16 | Diag Imaging Result Doc PS360 ---
EXAM: CHEST-PORTABLE HISTORY: resp failure TECHNIQUE: Portable chest single view COMPARISON: 03/09/2019 FINDINGS: No change in the endotracheal tube or right jugular line. The lungs are better expanded on the current study. There are small pleural effusions with basilar atelectasis. There may be underlying infiltrates. The heart is enlarged. IMPRESSION: Mild interval improvement. Electronically signed by Alfie Narayan 03/10/2019 7:14 AM
[2019-03-10 07:47] LABS: CALCIUM 6.9 mg/dL (8.8-10.2)
[2019-03-10 07:52] LABS: BASO# 0.01 X1000 (0.0-0.2); BASO% 0.1 % (0.0-0.8); EOS# 0.02 X1000 (0.0-0.7); EOS% 0.2 % (0.0-10.0); HEMATOCRIT 30.6 % (37.0-47.0); IMM GRAN# 0.03 X1000 (0.0-0.04); IMM GRAN% 0.4 % (0.0-0.5); LYMPH# 1.93 X1000 (1.2-3.4); LYMPH% 24.1 % (20.5-51.1); MCH 27.8 PG (27-31); MCHC 32.7 g/dL (33-37); MONO# 0.71 X1000 (0.11-0.59); MONO% 8.9 % (1.7-9.3); MPV 9.5 FL (7.4-10.4); NEUT# 5.32 X1000 (1.4-6.5); NEUT% 66.3 % (42.2-75.2); PLT 190 X1000 (130-400); RDW 15.7 % (11.5-14.5); WBC 8.02 X1000 (4.8-10.8)
[2019-03-10] MEDS: ZYVOX 600 MG/D5W 600 MG/300 ML IVPB IV SCH ×2 (09:06→19:41)
[2019-03-10] MEDS ORDERED: MAGNESIUM SULFATE 2 GM/S.W.I. 2 GM/50 ML IVPB IV ONE (09:34)
[2019-03-10] MEDS: HEPARIN 25,000 UNITS/D5W 25,000 UNIT/250 ML IV.SOLN IV SCH (09:38)
--- NOTE | 2019-03-10 10:16 | CONSULTATION ---
DATE OF CONSULTATION: 03/09/2019 REQUESTING PROVIDER: Dr. Justin Sutherland. REASON FOR CONSULTATION: Multiorgan failure. HISTORY OF PRESENT ILLNESS: This is a 63-year-old female with a medical history of adenocarcinoma of the right upper lobe, morbid obesity, chronic cholecystitis, anxiety, arthritis, autoimmune disorder, depression, osteoporosis, and thyroid disease. She presented to the ER last night via EMS with unresponsiveness for 6 hours prior to EMS arriving. On the way to the ER, EMS gave 2 doses of Narcan and patient woke up. Upon arrival to the ER, patient was responsive initially, but then started to become more confused. Initial workup revealed multiorgan failure including acute kidney injury, transaminitis, and elevated troponins, hyperkalemia, and shock. She has been admitted to the ICU for further evaluation and management. She was on nasal cannula initially. She desaturated early this morning, and later she was put on a Ventimask. Currently, patient is on partial nonrebreather. Her oxygen saturation stayed in low 90s. She partially opened her eyes with a sternal rub, but she did not talk. Patient's son is at the bedside. He reported that patient responded slowly yesterday noon and he suspected that patient was overdosed with her pain medication. PAST MEDICAL AND SURGICAL HISTORY (from the [facility]): 1. 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 Ohara. Mediastinal study with biopsy on 10/11/2017, by Dr. Ohara, and CT-guided lung biopsy on 09/27/2017, by Dr. Sands. 2. Morbid obesity. Current BMI 43.03. 3. Chronic cholecystitis, with mucosal erosion and cholesterolosis, status post recent cholecystectomy on 03/07/2019. 4. Anxiety disorder. 5. Arthritis. 6. Autoimmune disorder. 7. Depression. 8. Osteoporosis. 9. Thyroid disease. 10. Complete hysterectomy. 11. Tubal ligation. SOCIAL HISTORY: Patient lives at home with her . Their son, who is at the bedside, lives close to them and checks on them regularly. She had smoked tobacco up to half a pack per day since age 18, and quit 2 years ago after diagnosed with lung cancer. She has no history of alcohol or illicit drug use. FAMILY HISTORY: Per the eChart, patient's mother had alcohol abuse, arthritis, bladder problems, depression, diabetes, and thyroid problems. Father had diabetes and heart disease. ALLERGIES: No known drug allergies. REVIEW OF SYSTEMS: Unable to be obtained. PHYSICAL EXAMINATION: Vital Signs: Temperature 97.7 degrees, blood pressure 73/53, pulse 73, respiratory rate 15, oxygen saturation 96% on partial nonrebreather. General: Chronically ill appearing, resting in bed with no acute distress noted, morbidly obese. HEENT: Atraumatic. Trachea midline. Mucosa pink and moist. Respiratory: Even and unlabored. Symmetrical excursion. Auscultation reveals no air entry in right upper lobe and coarse breathing sounds throughout all lung patiño. Cardiovascular: Regular rate and rhythm. Gastrointestinal: Bowel sounds normoactive in all 4 quadrants. Soft, distended. Extremities: Edema of bilateral lower extremities. No cyanosis, no clubbing. Bilateral lower extremities cold to touch. Dorsalis pedis diminished bilaterally. Neurologic: Stuporous. Opens eyes with sternal rub, but not talking. LAB DATA: White blood cells 13.00, hemoglobin 11.9, hematocrit 38.0, platelet 239,000. Sodium 137, potassium 6.5, chloride 104, carbon dioxide 7, BUN 26, creatinine 2.9, glucose 126, troponin 0.297, AST 1110, ALT 437. ABG: PH 6.98, pCO2 78, pO2 89, HC03 13.6, base excess -14.4, oxyhemoglobin 94.5, on partial rebreather with FiO2 80%. IMAGING DATA: CT thorax, abdomen, and pelvis without contrast revealed atelectasis versus pneumonia in the lower lobes, particularly the right lower lobe, stable mediastinal adenopathy, postsurgical change of recent cholecystectomy, atherosclerotic changes in the aorta, particularly in the infrarenal abdominal aorta, slight distention of the stomach and duodenal bowel. The possibility of gastroparesis should be considered. No evidence of bowel obstruction, and increased heart size. ASSESSMENT: This is a 63-year-old female, with a medical history of adenocarcinoma of the right upper lobe, morbid obesity, chronic cholecystitis, anxiety disorder, arthritis, autoimmune disorder, depression, osteoporosis, and thyroid disease. She has been admitted to the ICU with metabolic encephalopathy, multiorgan failure including acute kidney injury, transaminitis, and elevated troponins, and hyperkalemia. 1. Acute hypoxemic and hypercapnic respiratory failure, with suspected chronic hypercapnic respiratory failure. 2. Suspected pain medication overdose. 3. Suspected aspiration pneumonia. 4. Metabolic encephalopathy. 5. Multiorgan failure, including acute kidney injury, transaminitis, and elevated troponins. 6. Shock. 7. Morbid obesity. PLAN: 1. Start BiPAP. Consider mechanical ventilation if indicated. 2. Continue antibiotic, pressor and fluid resuscitation. 3. Follow up with ABG, CBC, CMP, chest x-ray, blood culture and urine culture. 4. Dr. Key, Dr. Wagner, and Dr. Frausto are on board. 5. Further recommendations pending hospital course. Thank you for the courtesy of this consult. Dictated by COURTNEY Bianchi for Nasrin Langford MD cc: COURTNEY Bianchi MD [facility]
--- NOTE | 2019-03-10 10:21 | PROGRESS NOTE ---
DATE: 03/10/2019 SUBJECTIVE: This morning Ms. Palacios record seems to be doing a whole lot better. She is following commands. Per the nursing staff, the night was uneventful. OBJECTIVE: Vital signs: Blood pressure is 121/56, pulse of 96, respirations 16, temperature is 100.4 degrees. Patient had 101.2 degrees earlier today. General: Ms. Palacios is a 63-year-old female. She is in bed. She is intubated and on mechanical ventilator. HEENT: Mucosa is pink and moist. Anicteric. Acyanotic. Neck: Supple. Chest: Good air entry bilateral. Some transmitted sounds from the ventilator. Cardiovascular: Regular rate and rhythm. No murmurs, no rubs, no gallops. GI: Abdomen soft distended but nontender. Bowel sounds are present. There is some sterile dressing over the anterior abdominal wall over the recent laparoscopic wounds. /RECTAL: Mack catheter is in place and there is a rectal tube. Extremities: No pedal edema. Distal pulses present. HUMAN RESOURCE PROFESSIONAL: Patient is calm. She is awake. She follows basic commands. She is able to show me 2 fingers upon command and she is able to wiggle the toes upon command subparagraph. LABORATORY DATA: WBC is down to 8.02, hemoglobin is 10.0 platelet count of 190,000. ABG, pH is 7.41, pCO2 is 31. Sodium is 137, potassium is 2.8, chloride is 101, bicarb is 21, BUN is up to 44, creatinine is 4.5, magnesium is 1.4. AST and ALT are trending down. DIAGNOSTIC STUDIES: A chest x-ray this morning shows mild interval improvement. ASSESSMENT: 1. Hypotension, presumed to be related to massive pulmonary emboli versus a right heart infarct. The patient was given thrombolytics yesterday and she is currently on heparin drip. She is also on vasopressor (Levophed at 5 mcg.) Blood pressures are stable. 2. Altered mental status, presumably medication induced encephalopathy. The patient is a whole lot better in terms of neurological findings today. 3. Acute Oliguric kidney injury, most likely acute tubular necrosis from ischemic kidney injury. Urine sodium was about was 72 FNA that is fractional excretion of sodium was 18.8. The patient continues to be completely anuric. We are going to continue with the fluids for now. Nephrology is on board and will follow up with further recommendations from them. 4. Ischemic liver injury. Liver enzymes are trending down. 5. Troponin elevation, most likely due to demand ischemia. However, the right ventricular infarct is also a possibility since the echocardiogram showed almost a hypokinetic or an akinetic right ventricle. Cardiology is on board. 6. Acute hypercarbic respiratory failure. Patient is currently intubated. CO2 has significantly improved. 7. Morbid obesity with suspicion of obesity hypoventilation syndrome and sleep apnea. 8. Recent status post laparoscopic cholecystectomy noted. 9. Electrolytes abnormality including hypokalemia and hypomagnesemia. Will replace these. 10. Questionable aspiration pneumonia. The patient is currently on antimicrobial coverage (cefepime and Zyvox). So in general Ms. Palacios seems to be stable, getting better in some aspect. Neurologically improved. Her kidneys however continues to show worsening creatinine and BUN. Her urine studies is consistent with acute tubular necrosis. The patient is currently anuric. Nephrology is on board and will follow with further recommendations from them. Ms. Palacios is being seen by cardiology, pulmonary medicine, and nephrology and we truly appreciate the input in the care of this extremely complicated patient. cc: Rajan Miller MD [facility]
[2019-03-10] MEDS: POTASSIUM CHLORIDE 20 MEQ/SWI 20 MEQ/100 ML IVPB IV SCH ×2 (11:08→13:21)
[2019-03-10] MEDS: ATIVAN IV PRN ×2 (13:27→17:50)
[2019-03-10] MEDS ORDERED: SODIUM BICARBONATE 8.4% 150 MEQ in D5W 1,000 ML IV SCH (14:28)
--- NOTE | 2019-03-10 17:15 | GASTROENTEROLOGY PROGRESS NOTE ---
DATE: 03/10/2019 SUBJECTIVE: Patient continues to be on mechanical ventilation. She was resting in no acute distress. Per nurse report she does arouse and follows commands. OBJECTIVE: Vital Signs: Temperature 100.4 degrees, pulse 85, respirations 14, blood pressure 101/68. General: Patient is with eyes closed on mechanical ventilation in no acute distress. LABORATORY: Hematology. WBC 8.02, hemoglobin 10.0, hematocrit 30.6, MCV 85.0, platelet 190,000. Coagulation. Pro time 16.3, INR 1.21. Chemistry. Sodium 137, potassium 2.8, chloride 101, CO2 21, BUN 44, creatinine 4.5, glucose 139, total bilirubin 0.64, AST 427, ALT 302, alkaline phosphatase 71, creatine kinase 6931. Troponin 0.380, CK/MB 34.89. ASSESSMENT AND PLAN: 1. Hypotension. Patient on vasopressors. 2. Altered mental status has improved. 3. Acute kidney injury following with Nephrology. 4. Ischemic liver injury. Liver enzymes have improved some today. We will continue to follow. 5. Elevated troponin. Questionable right ventricular infarct following with Cardiology. Patient has received TPA yesterday. 6. Continue supportive care. Continue management per other team. GI will continue to follow and monitor liver function tests. They have improved. We had ordered hepatitis profile, REANNA. Those are pending. Iron was low. I have discussed this case with Dr. Frausto. Further plans will be made as needed. Dictated by COURTNEY Eisenberg for Mk Frausto MD cc: COURTNEY Rao MD
--- NOTE | 2019-03-10 18:03 | CARDIOLOGY PROGRESS NOTE ---
DATE: 03/10/2019 SUBJECTIVE: She continues on the vent, but she is easily arousable. OBJECTIVE: Vital Signs: She had a T-max of 101.2 degrees in the last 24 hours. Heart rate is in the 80s, blood pressure 101/68. General: No acute distress. Cardiovascular: She sounds to be in a regular rate and rhythm. I do not hear any obvious murmurs. Extremities: She has warm and well-perfused extremities. Chest: Her chest exam sounds clear. Mechanical breath sounds heard throughout. No increased work of breathing. Abdomen: Soft, nontender. PERTINENT DATA: Chest x-ray shows better explanation of lungs, small pleural effusions with basilar atelectasis. Her lab data demonstrates a white count of 8, hematocrit of 30, which is down from 40 on 03/08/2019. Her platelet count is 190,000. Her INR is 1.2. Her ABG shows a pH of 7.41, pCO2 of 31, PO2 of 206. Her AA gradient is 254 which is improved. Her lactate is 2.3. Her sodium is 137, potassium is 2.8, BUN 44, creatinine 4.5 which is elevated. Her magnesium level is 1.4. Her LFTs have decreased to an AST of 427 and ALT of 302. Albumin is 2.3. ASSESSMENT: Ms. Palacios is a 63-year-old female who presented with what is presumed to be a large pulmonary embolus based on the presenting clinical picture as well as the echocardiogram. PLAN: She continues on heparin. She is not on any pressors. Overall her laboratory tests today look improved. Currently I do not have any acute cardiovascular recommendations other than repletion of the electrolytes. She has potassium currently hanging, and she has magnesium already ordered. Laboratories have been ordered for the morning. cc: Neymar Forbes MD
--- NOTE | 2019-03-10 18:12 | NEPHROLOGY PROGRESS NOTE ---
DATE: 03/10/2019 SUBJECTIVE: She is arousable. She is on the ventilator. Nods to questions. OBJECTIVE: Blood pressure 109/56, heart rate 86, respirations 14. Afebrile. T-max 101.2 degrees. Intake 1.7 L. Output 100 mL. Net positive 2 L. Physical exam: Mental status as above. Conjunctivae are pink. Pupils are equal. Neck veins are not appreciated. Heart is regular. No gallops. Lungs are equal. No crackles. Abdomen is soft, nontender. Bowel sounds are present. Extremities: Edema 1+. No clubbing or cyanosis. IMPRESSION AND PLAN: Acute kidney injury. Presumably, ischemic acute tubular necrosis. Low urine output with rising BUN and creatinine. She has no acute indications for dialysis but likely will require it within the next 48 hours. She appears modestly hypervolemic. Because of her right-sided heart failure, the team has elected volume expansion. I agree with that decision but I will decrease the rate to 50 mL/h at this time, as I think she is adequately volume resuscitated. cc: Bladimir Key MD
[2019-03-11] MEDS: MAXIPIME 1 GM in NS 50 ML IV SCH ×2 (01:03→13:17)
[2019-03-11] MEDS: HEPARIN 25,000 UNITS/D5W 25,000 UNIT/250 ML IV.SOLN IV SCH ×2 (02:42→18:09)
[2019-03-11 04:33] LABS: ALLEN TEST YES; BE -1.3 mmoll (-3.0-3.0); BLOOD TYPE ARTERIAL; HCO3-(ACT) 23.9 mmoll (20.0-26.0); METHB 1.2 % (0.0-1.5); O2HB 96.6 % (95.0-99.0); PCO2(98.6) 43 mmHg (35-45); PO2(98.6) 130 mmHg (60-100); SAMPLE BLOOD; SAO2 99.1 % (95.0-100.0); SRATE 12 BPM; THB 15.3 g/dL (11.5-17.4); TVOL 500 mL; pH(98.6) 7.36 (7.35-7.45)
[2019-03-11 04:35] LABS: MODALITY VENTILATOR
[2019-03-11 04:48] LABS: INR 1.07; PROTIME 14.7 Seconds (11.0-16.0)
[2019-03-11 06:22] LABS: BASO# 0.03 X1000 (0.0-0.2); BASO% 0.3 % (0.0-0.8); EOS# 0.12 X1000 (0.0-0.7); EOS% 1.2 % (0.0-10.0); HEMATOCRIT 30.9 % (37.0-47.0); HEMOGLOBIN 10.2 g/dL (12.0-16.0); IMM GRAN# 0.04 X1000 (0.0-0.04); IMM GRAN% 0.4 % (0.0-0.5); LYMPH# 2.28 X1000 (1.2-3.4); LYMPH% 22.2 % (20.5-51.1); MCH 27.9 PG (27-31); MCV 84.7 FL (81-99); MONO# 0.91 X1000 (0.11-0.59); MONO% 8.9 % (1.7-9.3); MPV 9.8 FL (7.4-10.4); NEUT# 6.88 X1000 (1.4-6.5); PLT 219 X1000 (130-400); RBC 3.65 XMIL (4.2-5.4); RDW 15.9 % (11.5-14.5); WBC 10.26 X1000 (4.8-10.8)
[2019-03-11 06:47] LABS: ALB/GLOB RATIO 0.7; ALBUMIN 2.2 g/dL (3.5-5.0); CALCIUM 7.2 mg/dL (8.8-10.2); CREATININE 5.9 mg/dL (0.5-0.9); POTASSIUM 3.9 mmol/L (3.5-5.1); TOTAL BILIRUBIN 0.63 mg/dL (0.20-1.00); TOTAL PROTEIN 5.2 g/dL (6.3-8.3)
[2019-03-11] MEDS: DILAUDID IV PRN ×4 (06:49→16:49)
[2019-03-11] MEDS: ZYVOX 600 MG/D5W 600 MG/300 ML IVPB IV SCH ×2 (07:17→19:54)
[2019-03-11] MEDS: ATIVAN IV PRN ×5 (08:40→21:36)
--- NOTE | 2019-03-11 09:34 | PROGRESS NOTE ---
DATE: 03/11/2019 SUBJECTIVE: This morning, Ms. Palacios is seen in her ICU bed. She is still intubated. She is not able to give any interim history. However, she refers to be feeling well, with signs. Her son was at the bedside at the time of the encounter, Ivan Palacios. OBJECTIVE: Vital Signs: Blood pressure is 103/56, pulse of 82, respirations are 18, temperature is 98.9 degrees. General Examination: Ms. Palacios is a 63-year-old, female. She is in bed. She is currently intubated. HEENT: Mucosa is pink and moist. Anicteric. Acyanotic. Neck: Supple. Chest: Good air entry bilaterally. No crepitations. No rhonchi. There are some transmitted sounds from the ventilator. Cardiovascular: Regular rate and rhythm. No murmurs, no rubs, no gallops. GI: Abdomen is soft. Minimally distended. Bowel sounds are present but slightly hypoactive. : There is a Mack catheter still in place. There is also a rectal tube in place. 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 She is able to nod her head and say yes or no with signs to questions. Laboratory Data: WBC is 10.26, hemoglobin is 10.2, platelet count of 219,000. Chemistry is also reviewed. Sodium is 136, potassium is 3.9, chloride is 96, bicarb is 23. The patient's creatinine is up to 5.9. LFTs are all trending down. So far, blood cultures have been 48 hours negative and urine culture is also negative. Is and Os: Urine output was 450. The patient still has a total positive balance of 4717. Imaging studies: Today, none. ASSESSMENT: 1. Persistent hypotension, presumed to be related to either a massive pulmonary emboli versus a right heart myocardial infarction. The patient is still on Levophed. 2. Altered mental status on presentation, presumably due to medication-induced encephalopathy. This is resolved. 3. Acute kidney injury. The patient continues to be making very minimum urine. We think this is most likely related to acute tubular necrosis from ischemic kidney injury. Creatinine continues to go up. Nephrology is on board. 4. Ischemic liver injury. Liver enzymes are trending down. 5. Troponin elevation, presumed to be either demand ischemia versus a possible right heart infarction. 6. Acute hypercarbic respiratory failure, improved with mechanical ventilation. 7. Recent status post laparoscopic cholecystectomy, noted. 8. Aspiration pneumonia. Patient is on antimicrobial therapy. PLAN: In general, Ms. Palacios seems to be fairly stable. She continues to be needing pressors and her creatinine continues to go up. Nephrology is on board and will be pending further recommendations from them. I have discussed the plan with the son who was at the bedside at the time of the encounter. All questions and concerns were addressed. Today, we are going to start Ms. Palacios on Clinimix with lipid infusion for nutritional support. We might use an NG tube for enteral feeding maybe tomorrow, depending on pulmonary evaluation for patient's readiness to be extubated. cc: Rajan Miller MD
[2019-03-11] MEDS: CLINIMIX E 4.25%-5% SOLUTION 1,000 ML IV SCH (10:02)
[2019-03-11] MEDS: LIPOSYN 20% 250 ML IV SCH (10:02)
[2019-03-11 10:22] LABS: HEPATITIS PROFILE ACUTE SEE COMMENTS
--- NOTE | 2019-03-11 11:45 | Extremity Venous Study ---
PROCEDURE NAME: Venous U/S Bilateral Legs - 03/09/2019 REQUESTING PHYSICIAN: Dr. Miller. SALAD BAR CLERK: David. INDICATION: Postoperative leg swelling. EQUIPMENT: [employer] Vivid E9 ultrasound system with a 9 L-D transducer. FINDINGS: Images of the bilateral lower extremity venous systems were obtained in both sagittal and transverse planes. Doppler was used to evaluate veins for spontaneity, phasicity, respiratory excursion, and digital augmentation. RESULTS: Normal venous compression. Normal venous flow. No obvious superficial or deep venous thrombosis noted. INTERPRETATION: Essentially normal bilateral lower extremity venous study. cc: MD Rajan Omer MD
--- NOTE | 2019-03-11 13:46 | Diag Imaging Result Doc PS360 ---
EXAM: CHEST-PORTABLE - 03/11/2019 HISTORY: vent protocol TECHNIQUE: Portable chest COMPARISON: 03/10/2019 FINDINGS: Endotracheal tube and central venous catheter remain in place. There are ill-defined basilar opacities similar to prior. The upper lungs appear clear. There are possible small bilateral pleural effusions. There is no pneumothorax identified. Heart size is stable. IMPRESSION: Ill-defined basilar opacities similar to prior. Electronically signed by Tarik Alvarez 03/11/2019 1:43 PM
--- NOTE | 2019-03-11 14:51 | CARDIOLOGY PROGRESS NOTE ---
DATE: 03/11/2019 SUBJECTIVE: Ms. Palacios continues on the ventilator. She continues to be fairly alert after physical stimulation. She is able answer questions adequately. OBJECTIVE: Vital Signs: The patient is afebrile. She had a T-max of 101.2 degrees, and that at 4 a.m. yesterday. Her heart rate is 79. Her blood pressure is 146/87. She did have some lows yesterday. She is on a low dose of Levophed currently. General: No acute distress. She continues on the ventilator. Cardiovascular: She sounds to be in a regular rate and rhythm. I do not hear any obvious murmurs. She has no S3. She has mild 1+ bilateral lower extremity edema. Chest: Clear bilaterally. Mechanical breath sounds are heard throughout. Abdomen: Soft, nontender. PERTINENT DATA: She does not have a chest x-ray this morning. Her laboratory data demonstrates a white count of 10.2, hematocrit 30, platelet count is 219,000. Her hematocrit is stable from yesterday. She continues on a heparin infusion. Her PO2 was 130 on a decreased level of O2. Her AA gradient is 101, which is much improved. Her sodium is 136, potassium 3.9, her BUN is 48, with a creatinine of 5.9, which has trended up steadily since 03/08/2019. Her CKD is 3390, which is down. ASSESSMENT: Ms. Palacios is a 63-year-old female who has a presumed pulmonary embolus resulting in respiratory failure as well as acute kidney injury and generalized poor perfusion. PLAN: Her LFTs seem to be improving. Her renal function continues to worsen. She seems to be oxygenating reasonably well though. We will continue her on the heparin for the time being. Her hematocrit is stable. cc: Neymar Forbes MD
--- NOTE | 2019-03-11 14:53 | GASTROENTEROLOGY PROGRESS NOTE ---
DATE: 03/11/2019 SUBJECTIVE: The patient is resting comfortably. No new complaints. Overall, she feels much better. Her liver enzymes continue to improve. OBJECTIVE: Vital Signs: The patient is afebrile, pulse is 79, breathing 14, blood pressure 101/58. Physical exam is otherwise unremarkable. She remains on ventilator. LABORATORY DATA: AST today is down to 228 from 427. ALT is down to 221 from 302 yesterday. Alkaline phosphatase is normal at 92. Total bilirubin is 0.63. ASSESSMENT AND PLAN: From a liver perspective, workup for acute hepatitis was negative, and iron profile was also negative. Her PT/INR indicates that her synthetic function of the liver is normalized, and her transaminases are getting better. Most likely, she had sustained ischemic injury to the liver, and it is improving. No new suggestions. Will follow during hospitalization. Other medical problems as per team. cc: Mk Frausto MD
[2019-03-11] MEDS: LEVOPHED 8 MG in D5 1/2 NS 250 ML IV SCH (14:59)
[2019-03-12] MEDS: DILAUDID IV PRN ×5 (00:19→16:17)
[2019-03-12] MEDS: MAXIPIME 1 GM in NS 50 ML IV SCH ×2 (02:11→15:15)
[2019-03-12] MEDS: CLINIMIX E 4.25%-5% SOLUTION 1,000 ML IV SCH (04:04)
[2019-03-12 04:47] LABS: ALLEN TEST YES; BE -1.5 mmoll (-3.0-3.0); BLOOD TYPE ARTERIAL; HCO3-(ACT) 23.7 mmoll (20.0-26.0); MODALITY VENTILATOR; O2(CT) 19.1 mL/dL (15.0-23.0); O2HB 96.3 % (95.0-99.0); PCO2(98.6) 44 mmHg (35-45); PO2(98.6) 121 mmHg (60-100); SAMPLE BLOOD; SRATE 14 BPM; TVOL 600 mL; pH(98.6) 7.35 (7.35-7.45)
[2019-03-12 05:01] LABS: INR 0.99; PROTIME 13.9 Seconds (11.0-16.0)
[2019-03-12 05:41] LABS: BASO# 0.02 X1000 (0.0-0.2); BASO% 0.2 % (0.0-0.8); EOS# 0.24 X1000 (0.0-0.7); EOS% 2.5 % (0.0-10.0); HEMATOCRIT 31.2 % (37.0-47.0); HEMOGLOBIN 10.4 g/dL (12.0-16.0); IMM GRAN# 0.05 X1000 (0.0-0.04); IMM GRAN% 0.5 % (0.0-0.5); LYMPH# 2.15 X1000 (1.2-3.4); LYMPH% 22.1 % (20.5-51.1); MCH 28.3 PG (27-31); MCHC 33.3 g/dL (33-37); MONO# 0.73 X1000 (0.11-0.59); MONO% 7.5 % (1.7-9.3); MPV 9.6 FL (7.4-10.4); NEUT# 6.53 X1000 (1.4-6.5); NEUT% 67.2 % (42.2-75.2); PLT 207 X1000 (130-400); RBC 3.67 XMIL (4.2-5.4); RDW 15.7 % (11.5-14.5); WBC 9.72 X1000 (4.8-10.8)
[2019-03-12 06:14] LABS: ALB/GLOB RATIO 0.7; ALBUMIN 2.2 g/dL (3.5-5.0); CREATININE 6.6 mg/dL (0.5-0.9); POTASSIUM 4.2 mmol/L (3.5-5.1); TOTAL BILIRUBIN 0.58 mg/dL (0.20-1.00); TOTAL PROTEIN 5.5 g/dL (6.3-8.3)
--- NOTE | 2019-03-12 06:44 | Diag Imaging Result Doc PS360 ---
EXAM: CHEST-PORTABLE HISTORY: vent protocol TECHNIQUE: Chest single view COMPARISON: 03/11/2019 FINDINGS: No change in the endotracheal tube or right jugular line. There are small pleural effusions. There are basilar infiltrates versus atelectasis. Heart is mildly prominent. The overall appearance is similar to the prior exam. IMPRESSION: No interval improvement. Electronically signed by Alfie Narayan 03/12/2019 6:41 AM
[2019-03-12] MEDS ORDERED: NS 2,000 ML MISC PRN (07:28)
[2019-03-12] MEDS ORDERED: HEPARIN IV PRN (07:28)
[2019-03-12] MEDS ORDERED: TIGHT: 0.2 ML/HR FOR DIALYSIS MISC PRN (07:28)
[2019-03-12] MEDS: ZYVOX 600 MG/D5W 600 MG/300 ML IVPB IV SCH ×2 (07:38→20:12)
[2019-03-12] MEDS: LIPOSYN 20% 250 ML IV SCH (09:39)
[2019-03-12] MEDS: HEPARIN 25,000 UNITS/D5W 25,000 UNIT/250 ML IV.SOLN IV SCH ×2 (09:50→23:22)
--- NOTE | 2019-03-12 09:52 | NEPHROLOGY PROGRESS NOTE ---
DATE: 03/12/2019 SUBJECTIVE: Patient remains mechanically ventilated. She is awake and alert. She is trying to talk. OBJECTIVE: Vital Signs: Temperature 99.3 degrees, pulse 70, respiratory rate 14, blood pressure 99/51. Intake 2.6 L. Output 1 L. General: This is a middle-aged female, currently mechanically ventilated. Again awake and alert. HEENT: Normocephalic, atraumatic. She is orally intubated. Neck: Supple. Unable to determine JVD. Cardiovascular: Reveals a regular rate and rhythm. There is no gallop or murmur. Pulmonary: Again mechanically ventilated. There was no wheeze or rales today. Abdomen: Soft, positive bowel sounds. : Mack catheter. Extremities: She continues with 1+ lower extremity edema. This extends up to the thigh level. Integumentary: Skin is pale, warm, and dry. LAB DATA: WBC of 9.7, hemoglobin 10.4. Sodium 133, potassium 4.2, CO2 12, BUN 53, creatinine 6.6 .( 5.9, 4.5). ASSESSMENT AND PLAN: 1. Acute kidney injury, acute tubular necrosis. Her urine output with modest improvement although she remains in positive fluid territory. Her creatinine has continued to rise at a consistent rate. We will go ahead and have surgery place a Vas-Cath today. We will plan to initiate dialysis thereafter. I did discuss with the son this plan. He is in agreement with that. We will plan to dialyze her on a 3 K bath, 1 to 2 L fluid removal, UF for 2 hour treatment on a slow flow today. I also did discuss with the family that if the patient's blood pressure did not tolerate regular dialysis or if she had other issues we may need to transition her over to SLED. 2. Pulmonary emboli. Followed by primary and cardiology. Dictated by COURTNEY Casey for Bladimir Key MD Face to face encounter, data reviewed, discussed with Maria G Yuen on 03/12/19. I agree with the above assessment and plan of care. cc: Bladimir Key MD [facility]
[2019-03-12] MEDS: ATIVAN IV PRN ×3 (10:18→23:57)
[2019-03-12] MEDS: SOLU-CORTEF IV SCH (15:15)
[2019-03-12] MEDS: HALDOL IV PRN (17:41)
[2019-03-13] MEDS: CLINIMIX E 4.25%-5% SOLUTION 1,000 ML IV SCH ×3 (00:16→20:36)
[2019-03-13] MEDS: DILAUDID IV PRN ×4 (01:35→18:06)
[2019-03-13] MEDS: SOLU-CORTEF IV SCH ×2 (02:15→15:58)
[2019-03-13] MEDS: MAXIPIME 1 GM in NS 50 ML IV SCH ×2 (02:15→16:58)
[2019-03-13 04:52] LABS: ALLEN TEST YES; BE 1.9 mmoll (-3.0-3.0); BLOOD TYPE ARTERIAL; HCO3-(ACT) 26.3 mmoll (20.0-26.0); O2HB 91.6 % (95.0-99.0); PCO2(98.6) 41 mmHg (35-45); PO2(98.6) 59 mmHg (60-100); SAMPLE BLOOD; SAO2 94.4 % (95.0-100.0); SRATE 12 BPM; THB 10.1 g/dL (11.5-17.4); TVOL 600 mL; pH(98.6) 7.42 (7.35-7.45)
[2019-03-13 04:53] LABS: MODALITY VENTILATOR
[2019-03-13] MEDS: HEPARIN 25,000 UNITS/D5W 25,000 UNIT/250 ML IV.SOLN IV SCH ×3 (05:23→18:24)
[2019-03-13] MEDS ORDERED: NS 2,000 ML MISC PRN (06:18)
--- NOTE | 2019-03-13 07:50 | Diag Imaging Result Doc PS360 ---
EXAM: CHEST-PORTABLE INDICATION: vent protocol TECHNIQUE: One view COMPARISON: 03/12/2019 FINDINGS: Support tubes and lines are in stable positions. Small pleural effusions with adjacent mild atelectasis and/or infiltrate are unchanged. No new consolidation is identified. Cardiac silhouette is stable. IMPRESSION: Stable chest. Electronically signed by Trey Couch 03/13/2019 7:48 AM
[2019-03-13] MEDS: ZYVOX 600 MG/D5W 600 MG/300 ML IVPB IV SCH ×2 (08:02→19:40)
[2019-03-13] MEDS: ATIVAN IV PRN ×4 (08:03→19:40)
[2019-03-13] MEDS: LIPOSYN 20% 250 ML IV SCH (08:03)
[2019-03-13] MEDS: HALDOL IV PRN ×3 (09:37→20:36)
[2019-03-13 10:29] LABS: HEMATOCRIT 30.8 % (37.0-47.0); HEMOGLOBIN 10.2 g/dL (12.0-16.0); IMM GRAN# 0.09 X1000 (0.0-0.04); IMM GRAN% 1.2 % (0.0-0.5); LYMPH# 1.09 X1000 (1.2-3.4); LYMPH% 14.4 % (20.5-51.1); MCHC 33.1 g/dL (33-37); MCV 84.6 FL (81-99); MONO% 5.3 % (1.7-9.3); MPV 9.5 FL (7.4-10.4); NEUT# 6.01 X1000 (1.4-6.5); NEUT% 79.1 % (42.2-75.2); PLT 193 X1000 (130-400); RBC 3.64 XMIL (4.2-5.4); RDW 15.3 % (11.5-14.5); WBC 7.59 X1000 (4.8-10.8)
[2019-03-13 10:58] LABS: ALBUMIN 2.3 g/dL (3.5-5.0); CREATININE 3.1 mg/dL (0.5-0.9); PHOSPHORUS 4.2 mg/dL (2.7-4.5); POTASSIUM 4.9 mmol/L (3.5-5.1)
--- NOTE | 2019-03-13 13:24 | PROGRESS NOTE ---
DATE: 03/12/2019 SUBJECTIVE: This morning Ms. Palacios is seen in the Critical Care Unit. No family member was there. She had already gotten a Vas-Cath, and she was going through her dialysis session. OBJECTIVE: Vital Signs: Blood pressure 127/66, pulse 70, respirations 14, and temperature 97.1. General: Ms. Palacios is a 63-year-old female. She is in bed in no distress. She is currently intubated. HEENT: Mucus is pink and moist. Anicteric and acyanotic. Neck is supple. Chest: Good entry bilaterally. Some transmitted sound from the ventilator, but no wheezing. Cardiovascular: Regular rate and rhythm. No murmurs, no rubs, no gallops. GI: Abdomen is soft. Minimally distended. Bowel sounds present. : Mack catheter is in place. Rectal tube is also in place. 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 Follows basic commands. LABORATORY DATA: WBC is 9.72, hemoglobin 10.4, and platelet count of 207,000. Chemistry is also reviewed. Creatinine had gone up to 6.6. AST and ALT continues to be downward trend. A chest x-ray this morning continues to show bibasilar infiltrates versus atelectasis. No interval improvement. MEDICATIONS: Reviewed. The patient is currently on cefepime 1 gram q.12; today is day 3. Heparin drip. Zyvox 600 IV q.12; today is day 3. Norepinephrine drip. Vancomycin per pharmacy protocol. ASSESSMENT: 1. Persistent hypotension presumably related to either a massive pulmonary emboli versus a right heart myocardial infarction. Etiology has not been definitely defined. The patient continues to be on Levophed. Cortisol level is relatively low for the level of stress so we will also give the patient stress doses of steroids. 2. Altered mental status on presentation presumably due to medication induced encephalopathy (narcotics). This has resolved. 3. Acute oliguric kidney injury most likely due to ATN from ischemic kidney injury. The patient has been started on renal replacement therapy. Nephrology is on board. 4. Transaminitis secondary to ischemic liver injury. Enzymes are trending down. 5. Elevated troponin on presentation presumably due to demand ischemia versus possible right heart infarct. Cardiology is on board. 6. Acute hypercarbic respiratory failure. The patient continues to be on mechanical ventilation. The PC02 has normalized. Pulmonary Medicine is on board. 7. Aspiration pneumonia. The patient is on antimicrobial therapy; today is day 3. 8. Recent laparoscopic cholecystectomy. 9. Right ventricle akinesis, etiology is unknown. We presume this is either from a massive PE versus a right heart infarction. The patient is currently on therapy for both possible suspicions. She was given alteplase initially, and she is on heparin drip. 10. Nutritional support. The patient is on Clinimix with lipid infusion. In general, Ms. Palacios got admitted on 03/09/2019, today is day 3 hospitalization because of altered mental status and profound hypotension. Ms. Palacios had a laparoscopic gallbladder removal by Dr. Ohara three days prior to this current admission. We understand that she was on narcotic medication for pain relief, and I presume that she might have taken a little bit more of her pain medications. She was found unresponsive and was brought into the emergency department. She was found to be extremely hypotensive. We understand that she was given Narcan at home and in the ER; that seems to have improved her mentation. Anyway, during the initial hospital course, she continues to be altered. She went into respiratory failure so she was intubated, and multiple subspecialties are seeing her. She had an echocardiogram that revealed a severe akinetic right ventricle. She has acute kidney injury so we cannot do a CTA to rule out a PE. She was hypotensive so she was empirically treated for a massive PE with alteplase and currently on heparin drip. Ms. Palacios's mentation seems to be gradually getting better. She is still critically sick but seems to be stable. She was started on renal replacement therapy today by Nephrology. We are going to continue with the current therapy, and we will follow up with further recommendations from the various subspecialties. We really appreciate their help of the subspecialties in the care of this complicated patient. cc: MD HAIM Monteiro
[2019-03-13] MEDS: ATIVAN 20 MG in NS 190 ML IV SCH ×2 (16:52→23:45)
--- NOTE | 2019-03-13 21:30 | PROGRESS NOTE ---
DATE: 03/12/2019 SUBJECTIVE: Patient continues on ventilator. She is awake and responsive. OBJECTIVE: Vital signs: Blood pressure 107/49, heart rate 76, oxygen saturation 97%. There is no significant jugular venous distention. Chest: Clear to auscultation anteriorly. Cardiac: Reveals a regular rate and rhythm without appreciable murmur, rub, or gallop. There is no evidence of peripheral edema. LABORATORY DATA: Includes a white blood cell count of 9.72, hematocrit 31.2, hemoglobin 10.4, platelet count 207. Sodium 133, potassium 4.2, chloride 94, carbon dioxide 21, BUN 53, creatinine 6.6. Glucose 93. IMPRESSION: 1. Recent shock. Probably cardiogenic with echocardiography showing marked right ventricle enlargement with markedly hypokinetic right ventricle, raising suspicion for pulmonary embolus postoperatively. Patient has received thrombolytic therapy and continues on heparin. 2. Acute renal failure. Probably precipitated by renal hypoperfusion and acute tubular necrosis. 3. Respiratory failure. RECOMMENDATIONS: 1. Continue supportive care with ventilator. 2. Plans for dialysis noted. Hopefully, this is temporary and her urine output is increasing in the last 24 hours. 3. Continue anticoagulation. 4. Presumptive diagnosis of pulmonary embolus. Ultimately, patient may benefit from ventilation- perfusion lung scan as she recuperates. We will go ahead and repeat limited echocardiography for followup of right ventricle function. cc: Jackson Wagner MD
[2019-03-14] MEDS: DILAUDID IV PRN (01:20)
[2019-03-14] MEDS: SOLU-CORTEF IV SCH ×3 (02:52→20:34)
[2019-03-14] MEDS: HALDOL IV PRN (02:52)
[2019-03-14] MEDS: MAXIPIME 1 GM in NS 50 ML IV SCH ×2 (03:01→15:17)
[2019-03-14] MEDS: ATIVAN 20 MG in NS 190 ML IV SCH ×2 (03:02→07:16)
[2019-03-14 04:42] LABS: ALLEN TEST YES; BE 1.2 mmoll (-3.0-3.0); BLOOD TYPE ARTERIAL; HCO3-(ACT) 25.9 mmoll (20.0-26.0); O2(CT) 14.4 mL/dL (15.0-23.0); O2HB 97.5 % (95.0-99.0); PCO2(98.6) 41 mmHg (35-45); PO2(98.6) 192 mmHg (60-100); SAMPLE BLOOD; SAO2 99.5 % (95.0-100.0); SRATE 14 BPM; THB 10.2 g/dL (11.5-17.4); TVOL 600 mL; pH(98.6) 7.41 (7.35-7.45)
[2019-03-14] MEDS: HEPARIN 25,000 UNITS/D5W 25,000 UNIT/250 ML IV.SOLN IV SCH ×4 (04:42→22:46)
[2019-03-14 04:43] LABS: MODALITY VENTILATOR
[2019-03-14 06:09] LABS: BASO# 0.01 X1000 (0.0-0.2); BASO% 0.1 % (0.0-0.8); EOS# 0.08 X1000 (0.0-0.7); EOS% 0.9 % (0.0-10.0); HEMOGLOBIN 9.9 g/dL (12.0-16.0); IMM GRAN# 0.14 X1000 (0.0-0.04); IMM GRAN% 1.6 % (0.0-0.5); LYMPH# 1.45 X1000 (1.2-3.4); LYMPH% 16.8 % (20.5-51.1); MCH 27.7 PG (27-31); MCHC 31.9 g/dL (33-37); MCV 86.8 FL (81-99); MONO# 0.57 X1000 (0.11-0.59); MONO% 6.6 % (1.7-9.3); MPV 10.5 FL (7.4-10.4); PLT 185 X1000 (130-400); RBC 3.57 XMIL (4.2-5.4); RDW 15.4 % (11.5-14.5); WBC 8.65 X1000 (4.8-10.8)
[2019-03-14 06:42] LABS: ALB/GLOB RATIO 0.7; ALBUMIN 2.4 g/dL (3.5-5.0); CALCIUM 8.4 mg/dL (8.8-10.2); CREATININE 2.3 mg/dL (0.5-0.9); POTASSIUM 4.9 mmol/L (3.5-5.1); TOTAL BILIRUBIN 0.34 mg/dL (0.20-1.00); TOTAL PROTEIN 5.8 g/dL (6.3-8.3)
--- NOTE | 2019-03-14 06:45 | Diag Imaging Result Doc PS360 ---
CHEST-PORTABLE - 03/14/2019 INDICATION: vent protocol COMPARISON: 03/13/2019 FINDINGS: Stable endotracheal tube and right central line in good position. Lung volumes are improved but still very low. In particular there is still right hemidiaphragm elevation. There is been slight improvement in aeration of both lower lobes with clearance and better visualization of the diaphragms. Stable cardiomegaly and mild pulmonary vascular congestion. IMPRESSION: Improvement from prior. Electronically signed by Rob Mcmullen 03/14/2019 6:43 AM
[2019-03-14] MEDS: ZYVOX 600 MG/D5W 600 MG/300 ML IVPB IV SCH ×2 (07:45→20:34)
[2019-03-14] MEDS: LIPOSYN 20% 250 ML IV SCH (10:04)
[2019-03-14] MEDS: APRESOLINE IV PRN ×2 (10:37→22:50)
[2019-03-14 11:01] LABS: ALLEN TEST YES; BE -0.7 mmoll (-3.0-3.0); BLOOD TYPE ARTERIAL; HCO3-(ACT) 24.4 mmoll (20.0-26.0); METHB 1.4 % (0.0-1.5); O2(CT) 15.1 mL/dL (15.0-23.0); O2HB 96.7 % (95.0-99.0); PCO2(98.6) 47 mmHg (35-45); PO2(98.6) 145 mmHg (60-100); SAMPLE BLOOD; SAO2 98.9 % (95.0-100.0); THB 10.9 g/dL (11.5-17.4); pH(98.6) 7.34 (7.35-7.45)
[2019-03-14 11:02] LABS: MODALITY VENTILATOR
--- NOTE | 2019-03-14 12:04 | OPERATIVE NOTE ---
PROCEDURE DATE: 03/12/2019 PREOPERATIVE DIAGNOSES: 1. Acute kidney injury. 2. Respiratory failure. POSTOPERATIVE DIAGNOSES: 1. Acute kidney injury. 2. Respiratory failure. PROCEDURE PERFORMED: Insertion of dialysis catheter with ultrasound guidance. SURGEON: Bubba Marmolejo M.D. ESTIMATED BLOOD LOSS: Scant. COMPLICATIONS: None apparent. FINDINGS: The right femoral vein was patent and compressible and without thrombus. TECHNIQUE: She was placed in Trendelenburg in her ICU bed. The right groin was prepped and draped in the usual sterile fashion. One percent lidocaine was used to anesthetize the skin over the femoral vein. The vein was visualized with ultrasound. It was compressible and patent without thrombus. I accessed the vein under ultrasound guidance with one stick, drawing dark, nonpulsatile blood. The wire passed through the needle easily into the vein. The needle was removed. The track was dilated, and a Trialysis catheter was passed over the wire, into the vein via the Seldinger technique. The wire was removed. All ports janice back blood, and were flushed with saline. Sterile caps were applied. The port was anchored to the skin with nylon suture, and a sterile dressing was placed over it. There were no apparent complications. cc: Bubba Marmolejo MD
--- NOTE | 2019-03-14 14:05 | PROGRESS NOTE ---
DATE: 03/14/2019 SUBJECTIVE: Patient appears to be intubated but not on any sedation. Actually, we are planning to do weaning trial this morning. Blood pressure has been reported very high, but no other issues noted. OBJECTIVE: Vital Signs: Temperature 97.4 degrees, heart rate 67, respiratory rate 14. Blood pressure 198/92. O2 saturation 100% on mechanical ventilator at FiO2 of 40%. General: This is a chronically ill appearing 63-year-old female lying in bed in no acute distress intubated. HEENT: Mucous membranes moist. Anicteric sclerae and pale conjunctivae. Neck: No JVD noted. No carotid bruits. Cardiovascular: S1, S2 heard. No murmurs, gallops, or rubs. Regular rate and rhythm. Respiratory: Bilaterally clear to auscultation. There are some transmitted sounds from ventilator. The patient is not using any accessory muscles or having work of breathing. Abdomen: Soft. A little bit distended but apparently nontender to palpation. Bowel sounds present. No organomegaly. Genitourinary: Mack catheter in place. Neurological: Patient is sleepy but easily arousable. Follows basic commands. LABORATORY DATA: There are no labs from today. ASSESSMENT AND PLAN: 1. Persistent hypertension. That condition is resolved. Actually, it was told to be secondary to massive pulmonary emboli versus right heart myocardial infarction in any case. The blood pressure now is very high so we are going to start this patient on hydralazine p.r.n. Cortisol level was found to be low for the level of the stress so the patient was receiving hydrocortisone that we are decreasing today the doses. 2. Acute oliguric kidney injury. Most likely, this is acute tubular necrosis from ischemic kidney injury. She is receiving SLED as per Dr. Key recommendation. 3. Elevated troponin's on presentation presumably due to mismatch and demand supply. Cardiology following this patient. 4. Acute hypoxemic respiratory failure. ABG from today shows a good oxygenation and gas exchange so at this point I think this patient may be extubated. Dr. Langford following this patient for recommendation. 5. Aspiration pneumonia on antibiotics. As above, we will continue with the same management. 6. Nutritional support. The patient is on Clinimix and Lipids. 7. Disposition. At this point, we will see if we are able to extubate this patient. We will continue to monitor this patient closely. cc: Justin Tyson MD [facility]
--- NOTE | 2019-03-14 15:36 | GASTROENTEROLOGY PROGRESS NOTE ---
DATE: 03/12/2019 SUBJECTIVE: The patient remains intubated on mechanical ventilation. At the time of my rounds, she was having a Vas-Cath placement to start dialysis. Her kidney function has continued to worsen. Her liver function tests have improved, total bilirubin 0.5, AST 107, ALT 154, alkaline phosphatase 96. OBJECTIVE: Vital signs: Temperature 97.7, pulse 76, respirations 16, blood pressure 107/49. LABORATORY: Hematology: WBC 9.72, hemoglobin 10.4, hematocrit 31.2, MCV 85.0, platelet 207. Coagulation: ProTime 13.0. INR 0.99. PTT 62.8. Chemistry: Sodium 133, potassium 4.2, chloride 94, CO2 21, BUN 53, creatinine 6.6, glucose 93, calcium 8.0, total bilirubin 0.58, AST 107, ALT 154, alkaline phosphatase 96. ASSESSMENT AND PLAN: 1. Respiratory failure on mechanical ventilation. 2. Acute kidney injury. The patient is having Vas-Cath placement and plans to start dialysis. 3. Ischemic liver injury. Her liver enzymes have improved. Will continue to follow her liver function tests. GI will be available during her hospital course. Further plans will be made as needed. Continue other management per team. I have discussed this case with Dr. Frausto. Dictated by COURTNEY Eisenberg for Mk Frausto MD cc: COURTNEY Rao MD
[2019-03-14] MEDS: CLINIMIX E 4.25%-5% SOLUTION 1,000 ML IV SCH (17:24)
--- NOTE | 2019-03-14 17:44 | CARDIOLOGY PROGRESS NOTE ---
DATE: 03/14/2019 SUBJECTIVE: Patient has been extubated successfully. She is awake and responsive. She is somewhat confused this afternoon. She denies any chest discomfort or shortness of breath. OBJECTIVE: Blood pressure 165/67, heart rate 81, oxygen saturation 100% on oxygen mask.Neck: Jugular venous distention cannot be appreciated. Chest: Clear to auscultation. Cardiac: Exam reveals a regular rate and rhythm without appreciable murmur, rub, gallop. There is no evidence of peripheral edema. LABORATORY DATA: Includes a white blood cell count 8.65, hematocrit 31.2, hemoglobin 9.9, platelet count 185,000. Sodium 133, potassium 4.9, chloride 99, carbon dioxide 26, BUN 18 creatinine 2.3, glucose 112. IMPRESSION: 1. Recent shock, probably cardiogenic in origin, with echocardiography showing marked enlarged right ventricle with markedly hypokinetic right ventricle raising suspicion for pulmonary embolus following recent surgery. The patient has received thrombolytic therapy and continues on heparin. 2. Acute renal failure precipitated by renal hypoperfusion and acute tubular necrosis. Patient appears to be recovering. 3. Respiratory failure. RECOMMENDATIONS: 1. Continue supportive care. 2. Continue intravenous heparin. As renal function improves, we will consider transitioning to Lovenox. 3. Presumptive diagnosis of pulmonary embolus. Ultimately may benefit from ventilation-perfusion lung scan as she recuperates further. cc: Jackson Wagner MD
[2019-03-14] MEDS: DUONEB (A & A) INH PRN (19:52)
--- NOTE | 2019-03-14 21:31 | PROGRESS NOTE ---
DATE: 03/13/2019 SUBJECTIVE: Patient continues on ventilator and sedated. She is no longer on pressors. OBJECTIVE: Vital signs: Blood pressure 130/70, heart rate 73 and regular with ECG monitor showing sinus rhythm. Oxygen saturation 100%. There is no significant jugular venous distention. Chest: Clear to auscultation. Cardiac Exam: Reveals a regular rate and rhythm without appreciable murmur or gallop. There is no evidence of peripheral edema. LABORATORY DATA: Includes a white blood cell count of 7.59, hematocrit 30.8, hemoglobin 10.2, platelet count 193,000. Sodium 133, potassium 4.9, chloride 96, carbon dioxide 25, BUN 28, creatinine 3.1. Glucose 141. Albumin 2.3. IMPRESSION: 1. Recent shock syndrome suspected related to significant pulmonary embolus given dilated severely hypocontractile right ventricle demonstrated on presentation with preserved left ventricular ejection fraction. Patient status post thrombolic therapy and continue on heparin. Alternative diagnoses include. Right ventricular infarction; although, isolated right ventricular infarction would be unusual and chronic pulmonary hypertension. Recent narcotic analgesics may have contributed some as well. Alternative diagnosis also includes isolated right ventricular infarction which would be unusual as well as the possibility of chronic pulmonary hypertension. The patient also may have had sepsis as well. 2. Acute renal failure related to shock. Patient's renal function. Appears to be slowly improving in that she is started to have some urine output. 3. Recent laparoscopic cholecystectomy. RECOMMENDATIONS: 1. Continue supportive care. 2. Continue anticoagulation with heparin. 3. Ultimately would consider pursuit of ventilation-perfusion lung scan as she recuperate as this should be still abnormal as she has had significant pulmonary embolus. cc: Jackson Wagner MD
[2019-03-15] MEDS: MAXIPIME 1 GM in NS 50 ML IV SCH ×2 (03:11→15:16)
[2019-03-15] MEDS: DUONEB (A & A) INH PRN ×2 (04:30→07:56)
[2019-03-15 04:41] LABS: ALLEN TEST YES; BE -1.2 mmoll (-3.0-3.0); BLOOD TYPE ARTERIAL; MODALITY BI PAP; O2(CT) 14.9 mL/dL (15.0-23.0); O2HB 97.5 % (95.0-99.0); PCO2(98.6) 31 mmHg (35-45); PO2(98.6) 175 mmHg (60-100); SAMPLE BLOOD; SAO2 99.5 % (95.0-100.0); THB 10.6 g/dL (11.5-17.4); pH(98.6) 7.46 (7.35-7.45)
[2019-03-15] MEDS ORDERED: NS 2,000 ML MISC PRN ×2 (06:18→06:29)
[2019-03-15 06:32] LABS: BASO# 0.01 X1000 (0.0-0.2); BASO% 0.1 % (0.0-0.8); EOS# 0.02 X1000 (0.0-0.7); EOS% 0.2 % (0.0-10.0); HEMATOCRIT 29.8 % (37.0-47.0); HEMOGLOBIN 9.7 g/dL (12.0-16.0); IMM GRAN# 0.23 X1000 (0.0-0.04); IMM GRAN% 2.7 % (0.0-0.5); LYMPH# 1.63 X1000 (1.2-3.4); LYMPH% 18.9 % (20.5-51.1); MCHC 32.6 g/dL (33-37); MCV 85.9 FL (81-99); MONO# 0.83 X1000 (0.11-0.59); MONO% 9.6 % (1.7-9.3); MPV 8.9 FL (7.4-10.4); NEUT# 5.92 X1000 (1.4-6.5); NEUT% 68.5 % (42.2-75.2); PLT 212 X1000 (130-400); RBC 3.47 XMIL (4.2-5.4); WBC 8.64 X1000 (4.8-10.8)
[2019-03-15 06:56] LABS: ALBUMIN 2.8 g/dL (3.5-5.0); CALCIUM 8.7 mg/dL (8.8-10.2); CREATININE 3.2 mg/dL (0.5-0.9); POTASSIUM 4.8 mmol/L (3.5-5.1); TOTAL BILIRUBIN 0.31 mg/dL (0.20-1.00); TOTAL PROTEIN 5.5 g/dL (6.3-8.3)
--- NOTE | 2019-03-15 07:23 | Diag Imaging Result Doc PS360 ---
EXAM: CHEST-PORTABLE HISTORY: vent protocol TECHNIQUE: Chest single view COMPARISON: 03/14/2019 FINDINGS: The endotracheal tube has been removed. No change in the right jugular line. There are infiltrates and/or atelectasis in the right lung base similar to the prior study. There is mild pulmonary edema. Heart is mildly prominent. Likely trace pleural fluid. The overall appearance is similar to the prior exam. IMPRESSION: Stable chest. Electronically signed by Alfie Narayan 03/15/2019 7:21 AM
[2019-03-15] MEDS: LIPOSYN 20% 250 ML IV SCH (08:56)
[2019-03-15] MEDS: ZYVOX 600 MG/D5W 600 MG/300 ML IVPB IV SCH ×2 (08:56→20:16)
[2019-03-15] MEDS: SOLU-CORTEF IV SCH ×2 (08:56→20:16)
[2019-03-15] MEDS ORDERED: VITAMIN D PO SCH (09:45)
[2019-03-15] MEDS: NORVASC PO SCH ×2 (11:50→20:16)
[2019-03-15] MEDS: HEPARIN 25,000 UNITS/D5W 25,000 UNIT/250 ML IV.SOLN IV SCH ×2 (11:50→15:13)
--- NOTE | 2019-03-15 15:00 | Diag Imaging Result Doc PS360 ---
EXAM: LUNG SCAN / VQ HISTORY: RULE OUT PE TECHNIQUE: Nuclear medicine ventilation/perfusion lung scan COMPARISON: Chest x-ray taken earlier in the day FINDINGS: 36.3 mCi DTPA administered for the ventilation images. 5.14 mCi MAA given intravenously for the perfusion images. Ventilation and perfusion images obtained in multiple projections. No wedged shaped perfusion defect. No ventilation perfusion mismatch. IMPRESSION: No evidence for pulmonary embolus. Electronically signed by Alfie Narayan 03/15/2019 2:57 PM
--- NOTE | 2019-03-15 15:12 | PROGRESS NOTE ---
DATE: 03/15/2019 SUBJECTIVE: Patient has been successfully extubated yesterday. Now, requiring oxygen by nasal cannula at 4 L/minute. He reports feeling better. No complaints at this time. No acute issues noted as per nursing staff overnight except blood pressure has been recently high. OBJECTIVE: Vital Signs: Temperature 97.6 degrees, heart rate 75, respiratory rate 21, blood pressure 178/71, O2 saturation 100% on 4 L nasal cannula. General: This is a chronically ill- appearing, 63-year-old female, lying in bed, in no acute distress. HEENT: Head is normocephalic, atraumatic. Mucous membranes moist. Neck: No JVD noted. No carotid bruits. No lymphadenopathy. No thyromegaly. Cardiovascular: S1, S2 heard. No murmurs, gallops, or rubs. Regular rate and rhythm. Respiratory: There is some rhonchi noted in both pulmonary bases. The patient is not using any accessory muscles or having work of breathing. Abdomen: Soft. A little distended but nontender to palpation. Bowel sounds present. No organomegaly noted. Genitourinary: Mack catheter in place. Neurological: Patient is awake, alert, a little sleepy, follows basic commands. Moves 4 extremities. LABORATORY DATA: White cell count 8.64, hemoglobin 9.7, hematocrit 29.8, platelets 212,000. ABG shows pH 7.46, pCO2 31, PO2 125. Sodium 135, creatinine 3.2, glucose 116. ASSESSMENT AND PLAN: 1. Acute respiratory failure. Patient has been successfully extubated yesterday. Now requiring 4 L of oxygen by nasal cannula. We will continue with same treatments. We will continue to monitor this patient closely. 2. Aspiration pneumonia. Patient is on cefepime and Zyvox. White cell count is normal. We will continue with same management. 3. Persistent hypotension. Actually, the patient is not any vasopressor for the last 48 hours. Actually his blood pressure is getting higher so we are going to add amlodipine 5 mg p.o. b.i.d. to her current treatment. Initially, we though it was secondary to massive pulmonary emboli versus right heart myocardial infarction. In any case, because this patient is more alert and awake, we are going to do a V/Q scan to see what is the probability of this patient having a pulmonary embolism. In any case, we will continue with the same management. 4. Elevated troponins on presentation. That was presumably due to mismatch to demand supply. Cardiology following this patient. They have ordered the Lexiscan. The echo that has been done here showed markedly enlarged right ventricle. Patient continues to be on heparin drip. We will continue with the same management. 5. Acute oliguric kidney injury, not recovering. Most likely this is acute tubular necrosis from ischemic kidney injury. In any case, Dr. Key is following this patient and planning to provide SLED today. 6. Nutritional support. We will continue with Clinimix and lipids. 7. Disposition. I think this patient is doing better. What we are going to do is to [facility]. cc: Justin Tyson MD MTDD
[2019-03-15] MEDS: CLINIMIX E 4.25%-5% SOLUTION 1,000 ML IV SCH (15:15)
--- NOTE | 2019-03-15 16:14 | PROGRESS NOTE ---
DATE: 03/13/2019 SUBJECTIVE: Patient is intubated, not sedated. Able to follow basic commands. OBJECTIVE: Vital signs: Temperature 98.4 degrees, heart rate 71, respiratory rate 14, blood pressure 141/66, O2 saturation 100% on mechanical ventilator at FIO2 of 40%. General: This is a chronically ill appearing 63 -year-old female lying in bed, intubated but not sedated. HEENT: Head is normocephalic, atraumatic. Mucous membranes moist. Neck: No jugular venous distention, no lymphadenopathy, no bruit, no thyromegaly. Cardiovascular: S1-S2 heard. No murmurs, rubs or gallops. Regular rate and rhythm. Respiratory: Minimal coarse breath sounds in both bases, some transmitted sounds from the ventilator. Patient is not using any accessory muscles, no current work of breathing, Abdomen: Soft, a little bit distended but not tender to palpation. Bowel sounds present. No organomegaly. Extremities: No cyanosis, clubbing or edema. Peripheral pulses present in both legs. Genitourinary: Mack catheter in place. Neurological: Patient is awake, follows basic commands. Patient able to nod her head and say yes or no to answer questions. LABORATORY DATA: The ABG from today shows pH 7.42 with pCO2 41, pO2 59 that is on ventilator at FIO2 of 40%. No BMP. ASSESSMENT/PLAN: 1. Acute respiratory failure on ventilator. Patient's ABG shows good gas exchange except mild hypoxemia. At this point I don't know if we are going to extubate this patient. Patient is on SLED today. We will be following this patient with further recommendations. 2. Acute kidney injury, not recovered. That is most likely acute tubular necrosis from ischemic kidney injury. Patient is receiving dialysis, actually SLED. Continue to monitor. 3. Persistent hypotension. I could be related to massive pulmonary emboli versus right heart myocardial infarction. In any case today we were able to wean off from Levophed. Will continue to monitor this patient closely. 4. Altered mental status. Her condition is actually better. Patient is awake, following commands, on ventilator. We will continue to monitor. 5. Ischemic liver injury. We will continue to monitor. 6. Elevated troponin, most likely related to mismatch demand multiply. We will continue to monitor. 7. Recent status post laparoscopic cholecystectomy, aware. 8. Aspiration pneumonia. We will continue with antibiotics. DISPOSITION: We will continue to monitor this patient closely . cc: Justin Tyson MD
--- NOTE | 2019-03-15 16:31 | ECHO REPORT ---
ORDER DATE: 03/12/2019 This was a limited echocardiogram. Contrast was added to optimize visualization of the endocardium. M-Mode measurements could not be obtained in this study. The windows are really very limited, including the parasternal views and the apical views. SUMMARY OF 2-DIMENSIONAL IMAGIN. Global left ventricular systolic function is probably preserved. Ejection fraction may be on the order of 55% to 60%. I cannot rule out a limited wall motion abnormality, especially in the inferior posterior wall of the heart. 2. The study is really very poor. The aortic valve seems to be grossly normal. 3. The right-sided chambers may be somewhat enlarged. 4. There is no pericardial effusion. Clinical correlation recommended. Please consider doing a transesophageal echocardiogram for better evaluation of the cardiac structures if that is clinically indicated, or do a CT scan of the thorax without contrast to better assess the cardiac structures and its surrounding tissues. cc: MD Jackson Osborn MD
--- NOTE | 2019-03-15 16:55 | NEPHROLOGY PROGRESS NOTE ---
DATE: 03/15/2019 SUBJECTIVE: She is off the ventilator. She is able to talk with me. She admits to still feeling weak and tired and short of breath. OBJECTIVE: Vital Signs: Blood pressure 177/80, heart rate 81, respiration 18, afebrile. Intake 2.5 L. Output 1 L with 900 mL urine output. General: No acute distress. Skin: Warm and dry. Neck: Neck veins are not appreciated. Heart: Regular. No gallops. Lungs: Equal. No crackles. Abdomen: Soft, obese, nontender. Bowel sounds are present. Extremities: Have trace edema. No clubbing or cyanosis. IMPRESSION: Acute kidney injury. No recovery but improving urine output. Dialysis today with a goal of 2 L ultrafiltration using a 2 K bath. Standard intermittent hemodialysis. cc: Bladimir Key MD
--- NOTE | 2019-03-15 18:47 | NEPHROLOGY PROGRESS NOTE ---
DATE: 03/13/2019 SUBJECTIVE: She is alert, nods. Denies shortness of breath or pain. OBJECTIVE: Vital signs: Blood pressure 130/80, heart rate 71, respirations 10, afebrile. Intake 2.6 liters; output 2.1 liters with 750 mL urine output. General: In no acute distress. Skin: Warm and dry. Neck: Veins are not appreciated. Heart: Regular. Lungs: Equal, no crackles. Abdomen: Soft, nontender. Bowel sounds present. Extremities: No edema, clubbing or cyanosis. IMPRESSION: Acute kidney injury, no recovery. No new labs yet today. Dialysis today with a goal of 2 L ultrafiltration, 4 K bath, 32 bicarbonate. cc: Bladimir Key MD
[2019-03-15] MEDS: NEURONTIN PO SCH (20:16)
--- NOTE | 2019-03-15 20:35 | PROGRESS NOTE ---
DATE: 03/15/2019 SUBJECTIVE: Patient continues to require hemodialysis. She remains somewhat drowsy. She denies any chest discomfort or shortness of breath. OBJECTIVE: Vital Signs: Blood pressure 152/71, heart rate 80 and regular, oxygen saturation 99% on nasal cannula oxygen. Neck: Jugular venous distention cannot be appreciated. Lungs: Auscultation of the chest reveals diminished breath sounds in the right base. Cardiac: Reveals a regular rate and rhythm without appreciable murmur or gallop. Extremities: Demonstrate trace bilateral edema. LABORATORY DATA: Includes a white blood cell count of 8.64, hematocrit 29.8, hemoglobin 9.7, platelet count 212,000. Sodium 135, potassium 4.8, chloride 100, carbon dioxide 23, BUN 33, creatinine 3.2, glucose 116, albumin 2.8. Chest x-ray demonstrates atelectasis and/or infiltrates, right lung base. Ventilation-perfusion lung scan demonstrates matched defect in the right lower lung. There is no ventilation-perfusion mismatch. Study is low probability for pulmonary embolus. IMPRESSION: 1. Recent shock syndrome with echocardiography showing marked enlargement of right ventricle, with markedly hypokinetic right ventricle and evidence of acute right-sided heart failure with hepatic congestion and shock liver. The patient received thrombolytic therapy for suspected pulmonary embolus and continues on intravenous heparin. Alternative considerations are isolated right ventricular infarct. Consider also a possibility of underlying obstructive sleep apnea and associated pulmonary hypertension aggravated by narcotic analgesics postoperatively. 2. Acute renal failure precipitated by renal hypoperfusion. The patient is still requiring dialysis. 3. Recent respiratory failure. Patient improving and has been extubated. RECOMMENDATIONS: 1. Continue supportive care. 2. Continue intravenous heparin for now. 3. When patient is more cooperative, pursue followup echocardiography to re-assess right ventricular function and pulmonary hypertension. cc: Jackson Wagner MD
[2019-03-16] MEDS: HEPARIN 25,000 UNITS/D5W 25,000 UNIT/250 ML IV.SOLN IV SCH ×4 (03:24→22:43)
[2019-03-16] MEDS: MAXIPIME 1 GM in NS 50 ML IV SCH ×2 (03:26→15:03)
[2019-03-16 04:46] LABS: ALLEN TEST YES; BE 3.7 mmoll (-3.0-3.0); BLOOD TYPE ARTERIAL; HCO3-(ACT) 27.8 mmoll (20.0-26.0); PCO2(98.6) 49 mmHg (35-45); PO2(98.6) 117 mmHg (60-100); SAMPLE BLOOD; pH(98.6) 7.39 (7.35-7.45)
[2019-03-16 04:47] LABS: MODALITY CANNULA
[2019-03-16 04:57] LABS: BASO# 0.01 X1000 (0.0-0.2); BASO% 0.1 % (0.0-0.8); EOS# 0.06 X1000 (0.0-0.7); EOS% 0.7 % (0.0-10.0); HEMOGLOBIN 10.7 g/dL (12.0-16.0); IMM GRAN# 0.17 X1000 (0.0-0.04); IMM GRAN% 1.9 % (0.0-0.5); LYMPH# 1.82 X1000 (1.2-3.4); LYMPH% 19.9 % (20.5-51.1); MCH 27.7 PG (27-31); MCHC 32.4 g/dL (33-37); MCV 85.5 FL (81-99); MONO# 0.91 X1000 (0.11-0.59); MPV 8.9 FL (7.4-10.4); NEUT# 6.17 X1000 (1.4-6.5); NEUT% 67.4 % (42.2-75.2); PLT 210 X1000 (130-400); RBC 3.86 XMIL (4.2-5.4); WBC 9.14 X1000 (4.8-10.8)
[2019-03-16 05:35] LABS: ALB/GLOB RATIO 0.9; ALBUMIN 2.8 g/dL (3.5-5.0); CALCIUM 8.6 mg/dL (8.8-10.2); CREATININE 2.4 mg/dL (0.5-0.9); TOTAL BILIRUBIN 0.36 mg/dL (0.20-1.00)
[2019-03-16] MEDS: SYNTHROID PO SCH (06:12)
--- NOTE | 2019-03-16 06:42 | Diag Imaging Result Doc PS360 ---
CHEST-PORTABLE - 03/16/2019 INDICATION: vent protocol COMPARISON: 03/15/2019 FINDINGS: Stable right central line in good position. There has been improvement in aeration of the right lung base with better visualization of the right hemidiaphragm. Stable cardiomegaly and pulmonary vascular congestion. No new infiltrates. IMPRESSION: Improved aeration of the right lung base. Electronically signed by Rob Mcmullen 03/16/2019 6:40 AM
[2019-03-16] MEDS: ZYVOX 600 MG/D5W 600 MG/300 ML IVPB IV SCH ×2 (08:42→20:59)
[2019-03-16] MEDS: NEURONTIN PO SCH ×2 (08:43→20:59)
[2019-03-16] MEDS: LOPRESSOR PO SCH ×2 (08:43→20:59)
[2019-03-16] MEDS: NORVASC PO SCH ×2 (08:43→20:59)
[2019-03-16] MEDS: SOLU-CORTEF IV SCH ×2 (08:43→20:59)
[2019-03-16] MEDS: CLINIMIX E 4.25%-5% SOLUTION 1,000 ML IV SCH (08:44)
[2019-03-16] MEDS: LIPOSYN 20% 250 ML IV SCH (08:47)
--- NOTE | 2019-03-16 11:17 | PROGRESS NOTE ---
DATE: 03/16/2019 SUBJECTIVE: The patient has been successfully extubated 2 days ago she is feeling fine. Not requiring 2 L of oxygen by nasal cannula. She has been feeling fine. OBJECTIVE: Vital signs: Temperature 97.2 degrees, heart rate 77, respiratory rate 20, blood pressure 171/78. O2 saturation 98% on 3 L nasal cannula. General Examination: This is a chronically ill-appearing, 63-year-old female looking older than her stated age, lying in bed, in no acute distress. HEENT: Head is normocephalic, atraumatic. Mucous membranes moist. Neck: No JVD noted. No carotid bruits. No lymphadenopathy. No thyromegaly. Cardiovascular: S1, S2 heard. No murmurs, gallops, or rubs. Regular rate and rhythm. Respiratory: Minimal rhonchi noted in both pulmonary bases. Patient not using any accessory muscles or having work of breathing. Abdomen: Soft. A little bit distended but nontender to palpation. Bowel sounds present. No organomegaly. Genitourinary: Mack catheter in place. Neurological: Patient is awake and alert. Moves 4 extremities. LABORATORY DATA: White cell count 9.14, hemoglobin 10.7, hematocrit 33.0, platelets [id number] ABG shows pH 7.35, with pCO2 49, PO2 117 that was taken on 3 L of oxygen by nasal cannula. BMP remarkable for creatinine 2.4. ASSESSMENT AND PLAN: 1. Acute respiratory failure. Patient continues to improve. Yesterday, she was requiring 3 L of oxygen. Today she is requiring 2, not feeling short of breath. We will continue with the same management. Pulmonary following this patient. 2. Aspiration pneumonia. We will continue with the Zyvox and cefepime. White cell count is normal. We will continue with the same medication. 3. Hypertension. Actually patient was hypotensive at admission, but now we needed to provide amlodipine 5 mg p.o. b.i.d. plus metoprolol 25 mg p.o. b.i.d. We will continue to monitor. 4. Elevated troponin. That has been resolved. We did think that was probably due to demand supply mismatch. Cardiology following this patient. Also, there was a suspicion for pulmonary embolism but the VQ scans that were ordered showed low possibility. At this point, we will continue with the same management. 5. Acute oliguric kidney injury. The patient has been receiving dialysis. She had received dialysis yesterday actually. At this point, Dr. Key, is following this patient. We will follow recommendations. 6. Nutritional support. We will continue with Clinimix and Plavix until she is able to eat normally and we can stop this medication. DISPOSITION: We will move this patient to [facility] today. cc: Justin Tyson MD MTDD
--- NOTE | 2019-03-16 14:00 | ECHO REPORT ---
ORDER DATE: 03/16/2019 INDICATION: Respiratory failure. Reassess RV function. FINDINGS: This is a limited study. 1. There is mild tricuspid regurgitation. The RV systolic pressure is estimated in the 55 to 60 mmHg range. This is similar to the original echocardiogram performed on March 09. 2. There is enlargement of the right ventricle with moderate reduction in RV systolic function. The base is slightly more mobile than the apical portions. 3. The right atrium appears to be enlarged with a dimension of 4.5 cm. 4. No mitral valve prolapse. 5. Normal LV size, end-diastolic dimension of 5 cm. Normal wall thicknesses with a posterior and interventricular septal wall thickness 1 cm each. The calculated ejection fraction is 62% with no obvious wall motion abnormalities. 6. Aortic valve opens well. It is trileaflet. 7. There is no pericardial effusion identified. cc: MD Jackson Alanis MD
--- NOTE | 2019-03-16 17:25 | NEPHROLOGY PROGRESS NOTE ---
DATE: 03/16/2019 SUBJECTIVE: Awake, alert. Trying to eat her clear liquids. Interactive. OBJECTIVE: Vital Signs: Blood pressure 149/74, heart rate 81, respirations 26. General: No acute distress. Skin: Warm and dry. Neck: Neck veins are not distended. Heart: Regular. No gallops. Lungs: Equal. No crackles. Abdomen: Soft, nontender. Bowel sounds present. Extremities: There is 3+ edema. No clubbing or cyanosis. IMPRESSION: Acute kidney injury. Improving urine output. Electrolytes, acid-base, and anemia are all in target. Remains volume overloaded. No indication for dialysis today. cc: Bladimir Key MD
--- NOTE | 2019-03-16 17:34 | PROGRESS NOTE ---
DATE: 03/16/2019 SUBJECTIVE: Patient much more awake today and interactive. She denies chest discomfort or shortness of breath. She has had some cough. OBJECTIVE: Vital Signs: Blood pressure 157/77, heart rate 68, oxygen saturation 97% on nasal cannula oxygen at 2 L/minute. There is no significant jugular venous distention. Chest: Auscultation of the chest reveals some diminished breath sounds in the right base posteriorly. Cardiac Exam: Reveals a regular rate and rhythm without appreciable murmur or gallop. Extremities: Demonstrate trace edema. LABORATORY DATA: Includes a white blood cell count of 9.14, hematocrit 33.0, hemoglobin 10.7, platelet count 210. Sodium 134, potassium 4.0, chloride 96, carbon dioxide 26, BUN 23, creatinine 2.4, glucose 114. Albumin 2.8. IMPRESSION: 1. Recent shock with echocardiographic evidence of right ventricular failure and moderate pulmonary hypertension. Given clinical scenario following recent abdominal surgery, patient treated for possible pulmonary embolus with thromboembolic therapy and continues on heparin. Consider also the possibility of chronic pulmonary hypertension, possibly related to obstructive sleep apnea with acute right ventricular failure following abdominal surgery and sedative medications. 2. Acute renal failure, precipitated by shock and renal hypoperfusion with probable acute tubular necrosis. Patient progressively recovering. She last had dialysis yesterday. 3. Respiratory failure, resolving. RECOMMENDATIONS: 1. Continue supportive care. 2. Physical therapy, consult. 3. Pulmonary toilet/incentive spirometry. 4. Continue intravenous heparin. As renal function improves, will consider transitioning to Lovenox. 5. Repeat limited echocardiography for follow up of right ventricular function and pulmonary pressures. cc: Jackson Wagner MD
--- NOTE | 2019-03-16 19:12 | Extremity Venous Study ---
PROCEDURE NAME: Venous U/S Bilateral Legs - 03/13/2019 Bilateral lower extremity venous duplex and color flow imaging study using the GE vivid E9 ultrasound system with a 9L-D transducer. REFERRING PHYSICIAN: Dr. Langford. 63-year-old female. HAT CLEANER: Suzy White RVT. INDICATIONS: Pulmonary embolus. Rule out deep venous thrombosis. FINDINGS: The right common femoral vein was not imaged well because the patient has an AV graft in the right leg. However the branches of the right common femoral vein, the deep and superficial femoral veins were satisfactorily imaged and they had flow through them. The right popliteal vein and the deep veins below the right knee were all compressible and had flow through them. The superficial veins the right lower extremity were compressible throughout their length. The left common femoral vein and its branches, deep and superficial femoral veins were also satisfactorily imaged. They had flow through them and were compressible. Left popliteal vein, deep veins below the left knee were all compressible and had flow through them. The superficial veins of the left lower extremity were compressible throughout their length. INTERPRETATION: No evidence of acute deep or superficial venous thrombosis of the bilateral lower extremities. cc: MD Nasrin Thurston MD
--- NOTE | 2019-03-16 20:11 | GASTROENTEROLOGY PROGRESS NOTE ---
DATE: 03/16/2019 SUBJECTIVE: Patient is awake. She has been extubated. She does have some shortness of breath when talking, but she currently denies any significant complaints. Her liver function tests have improved to almost normal. She has required dialysis, following with Nephrology. OBJECTIVE: Vital Signs: Temperature 98.2, pulse 66, respirations 22, blood pressure 149/59. General: The patient is awake and alert. No acute distress. LABORATORY: Hematology: WBC 9.14, hemoglobin 10.7, hematocrit 33.0, MCV 85.5. Chemistry: Sodium 134, potassium 4.0, chloride 96, CO2 26, BUN 23, creatinine 2.4, glucose 111, calcium 8.6, total bilirubin 0.36, AST 22, ALT 46, alkaline phosphatase 95. ASSESSMENT AND PLAN: 1. Acute respiratory failure, now extubated, on O2 by nasal cannula. 2. Aspiration pneumonia. 3. Recent cholecystectomy. 4. Elevated liver function tests, was most likely related to shock liver/ischemic liver injury. Her liver function tests have essentially returned to normal. 5. Acute kidney injury. She has received dialysis, following with Dr. Key. 6. Liver function tests have essentially returned to normal. GI will currently sign off. Please re-consult if needed. I have discussed this case with Dr. Frausto. Dictated by COURTNEY Eisenberg for Mk Frausto MD cc: COURTNEY Rao MD
[2019-03-17] MEDS: HALDOL IV PRN
--- NOTE | 2019-03-17 03:01 | PULMONOLOGY PROGRESS NOTE ---
DATE: 03/16/2019 SUBJECTIVE: The patient is awake, alert, and conversant. She reports she feels stronger. She is without specific complaints. OBJECTIVE: Vital Signs: The patient has been afebrile for the last 24 hours. BP 149/59, heart rate 69, oxygen saturation 99% on 2 L per nasal cannula. LABS: Sodium 134, potassium 4.0, chloride 96, bicarbonate 26, BUN 23, creatinine 2.4. White blood count 9.14, hemoglobin 10.7, platelet count 210,000. Chest x-ray reveals decreased aeration at the right base, but improved from prior films. IMPRESSION: A 63-year-old with 1. Acute hypoxemic respiratory failure. 2. Acute cor pulmonale, possibly related to pulmonary embolus, status post thrombolytics treatment. 3. Acute renal failure. 4. Morbid obesity. DISCUSSION: A 63-year-old with problems outlined above. Clinically, she is rapidly improving. RECOMMENDATIONS: 1. Continue bronchial hygiene. 2. Agree with physical therapy consult. 3. Agree with transition to oral anticoagulation when feasible. cc: Adeel Shukla MD
[2019-03-17] MEDS: CLINIMIX E 4.25%-5% SOLUTION 1,000 ML IV SCH (04:06)
[2019-03-17] MEDS: MAXIPIME 1 GM in NS 50 ML IV SCH ×2 (04:06→15:06)
[2019-03-17] MEDS ORDERED: BLISTEX MEDICATED BERRY LIP BALM TOP PRN (04:07)
[2019-03-17 04:51] LABS: ALLEN TEST YES; BE 2.1 mmoll (-3.0-3.0); BLOOD TYPE ARTERIAL; HCO3-(ACT) 26.5 mmoll (20.0-26.0); METHB 1.3 % (0.0-1.5); O2HB 94.6 % (95.0-99.0); PCO2(98.6) 50 mmHg (35-45); PO2(98.6) 78 mmHg (60-100); SAMPLE BLOOD; SAO2 97.1 % (95.0-100.0); THB 11.2 g/dL (11.5-17.4); pH(98.6) 7.36 (7.35-7.45)
[2019-03-17 05:01] LABS: MODALITY CANNULA
[2019-03-17 05:56] LABS: BASO# 0.01 X1000 (0.0-0.2); BASO% 0.1 % (0.0-0.8); EOS# 0.18 X1000 (0.0-0.7); EOS% 1.9 % (0.0-10.0); HEMATOCRIT 33.8 % (37.0-47.0); HEMOGLOBIN 10.8 g/dL (12.0-16.0); IMM GRAN# 0.15 X1000 (0.0-0.04); IMM GRAN% 1.5 % (0.0-0.5); LYMPH# 2.46 X1000 (1.2-3.4); LYMPH% 25.4 % (20.5-51.1); MCH 27.8 PG (27-31); MCV 86.9 FL (81-99); MONO# 0.93 X1000 (0.11-0.59); MONO% 9.6 % (1.7-9.3); NEUT# 5.96 X1000 (1.4-6.5); NEUT% 61.5 % (42.2-75.2); PLT 225 X1000 (130-400); RBC 3.89 XMIL (4.2-5.4); RDW 15.2 % (11.5-14.5); WBC 9.69 X1000 (4.8-10.8)
[2019-03-17] MEDS ORDERED: NS 2,000 ML MISC PRN (06:19)
[2019-03-17] MEDS: SYNTHROID PO SCH (06:19)
[2019-03-17 06:21] LABS: ALB/GLOB RATIO 1.1; CALCIUM 8.8 mg/dL (8.8-10.2); CREATININE 2.7 mg/dL (0.5-0.9); POTASSIUM 4.8 mmol/L (3.5-5.1); TOTAL BILIRUBIN 0.31 mg/dL (0.20-1.00); TOTAL PROTEIN 5.8 g/dL (6.3-8.3)
--- NOTE | 2019-03-17 07:12 | Diag Imaging Result Doc PS360 ---
EXAM: CHEST-PORTABLE HISTORY: vent protocol TECHNIQUE: Chest single view COMPARISON: 03/16/2019 FINDINGS: The right hemidiaphragm is elevated. The heart is mildly enlarged. Mild central vascular distention. No change in the right jugular line. No pneumothorax. No pleural effusions identified. Scarring in the right base. IMPRESSION: Stable chest Electronically signed by Alfie Narayan 03/17/2019 7:09 AM
[2019-03-17] MEDS: LIPOSYN 20% 250 ML IV SCH (08:22)
[2019-03-17] MEDS: MUCOMYST 20% INH SCH ×2 (11:42→20:00)
[2019-03-17] MEDS: SOLU-CORTEF IV SCH ×2 (13:10→20:47)
[2019-03-17] MEDS: NORVASC PO SCH ×2 (13:10→20:47)
[2019-03-17] MEDS: LOPRESSOR PO SCH ×2 (13:10→20:47)
[2019-03-17] MEDS: NEURONTIN PO SCH ×2 (13:10→20:47)
--- NOTE | 2019-03-17 13:40 | PROGRESS NOTE ---
DATE: 03/17/2019 SUBJECTIVE: Patient reports feeling better. Reports some secretions that she is not able to spit up. Denies any fever or chills. OBJECTIVE: Vital Signs: Temperature 97.9, heart rate 63, respiratory rate 17, blood pressure 148/50, O2 saturation 100% on 3 L nasal cannula. General Examination: This is a chronically ill appearing, 63-year-old female looking older than her stated age lying in bed in no acute distress. HEENT: Head is normocephalic and atraumatic. Mucous membranes are moist. Neck: No JVD noted. No carotid bruits. No lymphadenopathy. No thyromegaly. Cardiovascular: S1, S2 heard. No murmurs, gallops, or rubs. Regular rate and rhythm. Respiratory Exam: Minimal rhonchi noted still in both pulmonary bases and also anteriorly as well. The patient is not using any accessory muscles or having work of breathing. Abdomen: Soft, a little bit distended but nontender to palpation. Bowel sounds are present. No organomegaly. Extremities: No clubbing, cyanosis, or edema. Peripheral pulses present in both legs. Genitourinary: Mack catheter in place. Neurological: Patient is alert, awake, moves 4 extremities. LABORATORY DATA: White cell count 9.69, hemoglobin 10.8, hematocrit 33.8, platelets 225,000 with ABG that shows pH 7.36 with pCO2 50 pO2 78. The BMP is remarkable for creatinine of 2.7 with sodium of 135. ASSESSMENT AND PLAN: 1. Acute respiratory failure. She is stable from that standpoint. She continues to require between 2 and 3 L of oxygen by nasal cannula. The patient reports feeling fine, not short of breath. She has had some secretions, lung secretions that she is not able to expel so we are going to start Mucomyst inhaled twice daily and see how she does. 2. Aspiration pneumonia. We will continue with Zyvox and cefepime. Actually today is day number 9 for Zyvox, for cefepime is day number 9 as well. I think we are going to complete 10 more days of antibiotics, and we will stop those medications. 3. Hypertension. Blood pressure after we started this patient on amlodipine 5 mg p.o. b.i.d. plus metoprolol 25 mg p.o. b.i.d., she is much more stable with blood pressure ranging between 130s and 140s. We will continue with same management. 4. Acute cor pulmonale possibly related to pulmonary embolus status post thrombolytics treatment. Cardiology and pulmonary following this patient. Cardiology thinks that this patient needs to continue with heparin drip but at some point down the road, we will need to change anticoagulation to p.o. We will continue to follow recommendations from Cardiology. They are planning also to repeat limited echocardiography for follow up with the right ventricular function and pulmonary pressures. 5. Acute oliguric kidney injury. The patient is having better urine output. She is going to have dialysis today as per Dr. Key's recommendation. 6. Nutritional support. Patient is feeling better. She is on a full liquid diet. We will advance her diet as tolerated. 7. Disposition: We will continue to monitor this patient closely. Physical therapy and occupational therapy has been consulted. I think this patient will need to go to rehab facility whenever she is ready. We will continue to monitor. cc: Justin Tyson MD MTDD
[2019-03-17] MEDS: ZYVOX 600 MG/D5W 600 MG/300 ML IVPB IV SCH (14:17)
[2019-03-17] MEDS: HEPARIN 25,000 UNITS/D5W 25,000 UNIT/250 ML IV.SOLN IV SCH ×2 (15:06→15:50)
[2019-03-17] MEDS: DUONEB (A & A) INH PRN ×3 (15:58→23:16)
--- NOTE | 2019-03-17 17:22 | PROGRESS NOTE ---
DATE: 03/17/2019 SUBJECTIVE: Patient reports continued progressive improvement. She denies chest discomfort or shortness of breath. Cough has improved. OBJECTIVE: Blood pressure 140/62, heart rate 71, oxygen saturation 100% on nasal cannula oxygen.Neck: Jugular venous distention cannot be appreciated. Chest: Clear to auscultation bilaterally. Cardiac Exam: Reveals a regular rate and rhythm without appreciable murmur or gallop. Extremities: Demonstrate trace edema. LABORATORY DATA: Includes white blood cell count is 9.69, hematocrit 33.8, hemoglobin 10.8, platelet count 225,000. Sodium 135, potassium 4.8, chloride 97, carbon dioxide 28, BUN 37, creatinine 2.7. Glucose 109. IMPRESSION: 1. Recent shock with echocardiographic evidence of right ventricular failure and moderate pulmonary hypertension. Given clinical scenario following recent abdominal surgery, patient treated for possible pulmonary embolus with thrombotic therapy and continues on heparin. Consider also the possibility of chronic pulmonary hypertension possibly related to obstructive sleep apnea with acute right ventricular failure following abdominal surgery and sedative medications. Patient clinically improved. 2. Acute renal failure precipitated by shock and renal hypoperfusion with probable acute tubular necrosis. Renal function progressively recovering. RECOMMENDATIONS: 1. Continue supportive care. 2. Physical therapy consult. 3. Pulmonary toilet/incentive spirometry. 4. Continue intravenous heparin. As renal function improves, consider transitioning to Lovenox. cc: Jackson Wagner MD
--- NOTE | 2019-03-17 18:20 | PULMONOLOGY PROGRESS NOTE ---
DATE: 03/17/2019 SUBJECTIVE: Patient was seen in dialysis. She is awake, alert, and conversant. She is without specific complaints. OBJECTIVE: Vital Signs: The patient has been afebrile for the last 24 hours. Blood pressure 143/61, heart rate 64, respiratory rate 18, oxygen saturation 98%. HEENT: Pupils are equal and reactive. Oropharynx is clear. Neck: Neck is supple. Chest: Chest reveals bibasilar crackles with mid lung rhonchi. Cardiac exam: S1, S2. Abdomen: Obese and soft. Extremities: Reveal trace to 1+ peripheral edema. LABORATORIES/XRAYS: Chest x-ray reveals elevated right hemidiaphragm, mild cardiomegaly with mild central vascular distention. White blood count 9.7, hemoglobin 10.8, platelet count 225,000. Sodium 135, potassium 4.8, chloride 97, BUN 37, creatinine 2.7. IMPRESSION: A 63-year-old with: 1. Acute hypoxemic respiratory failure. 2. Acute cor pulmonale, likely related to pulmonary embolus. The patient received thrombolytics. 3. Acute renal failure. 4. Morbid obesity. DISCUSSION: A 63-year-old with problems outlined above. She continues to rapidly improve. Urine output is improving. RECOMMENDATION: 1. Continue bronchial hygiene. 2. Continue physical therapy. 3. Wean oxygen as tolerated. 4. Anticipate course of oral anticoagulation. cc: Adeel Shukla MD
--- NOTE | 2019-03-17 19:11 | NEPHROLOGY PROGRESS NOTE ---
DATE: 03/17/2019 SUBJECTIVE: No new complaints. She is on dialysis currently. OBJECTIVE: Vital Signs: Blood pressure 143/61, heart rate 64, respiration 18, afebrile. General: No acute distress. Skin: Warm and dry. HEENT: Conjunctivae are pink and moist. Pupils are equal. Oropharynx clear. Neck: Neck veins are not distended. Heart: Regular. Lungs: Equal. Abdomen: Soft, obese, nontender. Bowel sounds present. Extremities: 2+ edema. No clubbing or cyanosis. IMPRESSION: Acute kidney injury. Good urine output. She is on dialysis currently. We will hold over the next 48 hours and reevaluate. cc: Bladimir Key MD
[2019-03-18] MEDS: CLINIMIX E 4.25%-5% SOLUTION 1,000 ML IV SCH (00:25)
[2019-03-18] MEDS: ZYVOX 600 MG/D5W 600 MG/300 ML IVPB IV SCH ×2 (02:43→16:36)
[2019-03-18] MEDS: MAXIPIME 1 GM in NS 50 ML IV SCH ×2 (02:43→16:36)
[2019-03-18 04:14] LABS: ALLEN TEST YES; BLOOD TYPE ARTERIAL; HCO3-(ACT) 28.8 mmoll (20.0-26.0); METHB 1.6 % (0.0-1.5); O2(CT) 13.7 mL/dL (15.0-23.0); PO2(98.6) 80 mmHg (60-100); SAMPLE BLOOD; SAO2 97.8 % (95.0-100.0); THB 10.2 g/dL (11.5-17.4); pH(98.6) 7.39 (7.35-7.45)
[2019-03-18 04:28] LABS: MODALITY BI PAP; PCO2(98.6) 51 mmHg (35-45)
[2019-03-18] MEDS: SYNTHROID PO SCH ×2 (05:18→06:21)
[2019-03-18 05:45] LABS: BASO# 0.02 X1000 (0.0-0.2); BASO% 0.1 % (0.0-0.8); EOS# 0.11 X1000 (0.0-0.7); EOS% 0.7 % (0.0-10.0); HEMATOCRIT 33.3 % (37.0-47.0); HEMOGLOBIN 10.7 g/dL (12.0-16.0); IMM GRAN# 0.15 X1000 (0.0-0.04); LYMPH# 2.73 X1000 (1.2-3.4); LYMPH% 17.4 % (20.5-51.1); MCH 27.9 PG (27-31); MCHC 32.1 g/dL (33-37); MCV 86.9 FL (81-99); MONO# 0.76 X1000 (0.11-0.59); MONO% 4.8 % (1.7-9.3); MPV 9.2 FL (7.4-10.4); NEUT# 11.91 X1000 (1.4-6.5); PLT 207 X1000 (130-400); RBC 3.83 XMIL (4.2-5.4); RDW 14.9 % (11.5-14.5); WBC 15.68 X1000 (4.8-10.8)
[2019-03-18 06:17] LABS: ALB/GLOB RATIO 0.9; ALBUMIN 2.7 g/dL (3.5-5.0); CALCIUM 8.7 mg/dL (8.8-10.2); POTASSIUM 4.3 mmol/L (3.5-5.1); TOTAL BILIRUBIN 0.28 mg/dL (0.20-1.00); TOTAL PROTEIN 5.7 g/dL (6.3-8.3)
[2019-03-18] MEDS: HEPARIN 25,000 UNITS/D5W 25,000 UNIT/250 ML IV.SOLN IV SCH (07:16)
[2019-03-18] MEDS: MUCOMYST 20% INH SCH ×2 (07:56→19:55)
[2019-03-18] MEDS: DUONEB (A & A) INH PRN ×5 (07:57→23:40)
--- NOTE | 2019-03-18 08:24 | Diag Imaging Result Doc PS360 ---
EXAM: CHEST-PORTABLE - 03/18/2019 HISTORY: vent protocol TECHNIQUE: Portable chest COMPARISON: 05/18/2019 FINDINGS: The patient is mildly rotated towards the right. There is apparent infrahilar infiltrate on the left, although this possibly could be artifactual due to the rotation. There are no other interval changes identified. Central venous catheter remains in place. IMPRESSION: Development of infrahilar infiltrate on the left versus artifact from patient rotation. Pneumonia cannot be excluded. Electronically signed by Tarik Alvarez 03/18/2019 8:21 AM
[2019-03-18] MEDS: NORVASC PO SCH ×2 (08:37→20:27)
[2019-03-18] MEDS: NEURONTIN PO SCH ×2 (08:37→20:27)
[2019-03-18] MEDS: SOLU-CORTEF IV SCH ×2 (08:38→20:27)
[2019-03-18] MEDS: LOPRESSOR PO SCH ×2 (08:38→20:27)
--- NOTE | 2019-03-18 09:08 | PROGRESS NOTE ---
DATE: 03/18/2019 SUBJECTIVE: The patient reports feeling fine. Cough is better. She wanted to have the Mack and rectal tube removed. OBJECTIVE: Vital Signs: Temperature 97.7 degrees, heart rate 70, respiratory rate 20, blood pressure 155/73, O2 saturation 100% 3 L nasal cannula. General: This is a chronically ill- appearing, 63-year-old, female, looking older than her stated age, lying in bed in no acute distress. HEENT: Head is normocephalic. Mucous membranes moist. Neck: No JVD noted. No carotid bruits. No lymphadenopathy. Cardiovascular: S1, S2 heard. No murmurs, gallops, or rubs. Regular rate and rhythm. Respiratory: Minimal rhonchi still noted in both pulmonary bases and also anteriorly as well. The patient is not using any accessory muscles or having work of breathing. Abdomen: Soft. A little bit distended. Nontender to palpation. Bowel sounds present. No organomegaly. Extremities: No clubbing, cyanosis, or edema. Peripheral pulses present in both legs. Genitourinary: Mack catheter in place with clear urine. Neurological: The patient is alert, awake. Moves all 4 extremities. Speech is coherent. LABORATORY DATA: White cell count 15.63, hemoglobin 10.7, hematocrit 33.3, platelets 207. ABG shows pH 7.39, with pCO2 of 51, PO2 of 80. The BMP is remarkable for creatinine 2.0, calcium 8.7. Albumin is 2.7. ASSESSMENT AND PLAN: 1. Acute respiratory failure. The patient is stable from that standpoint. She is requiring between 2 and 3 L of oxygen by nasal cannula. Pulmonary is following this patient. Will follow recommendations. No shortness of breath reported. 2. Aspiration pneumonia. Will continue with Zyvox and cefepime. Today is day #10 for all medications, so tomorrow those medication will be stopped. 3. Hypertension with amlodipine 5 mg by mouth twice daily, plus metoprolol 25 mg by mouth twice daily. Blood pressure is finally controlled. Will continue with the same management. 4. Acute cor pulmonale, possibly related to pulmonary embolus, status post thrombolytic treatment. The patient continues to be on a heparin drip. Cardiology plans to change anticoagulation to either Lovenox or something by mouth once renal function stabilized. Also, there is an order for repeat limited echocardiography for followup of the right ventricular function and pulmonary pressures. 5. Acute on chronic kidney injury. The patient continues to be on dialysis. Will see if Dr. Key is planning to continue with dialysis as an outpatient as she had good urine output. 6. Nutritional support. The patient is feeling better. The patient wanted to have a regular diet, so will change it, and will stop Clinimix and Plavix. 7. Disposition. At this point, the patient is much more stable. Will transfer her to a regular floor. Physical Therapy and Occupational Therapy have been consulted. Plan is to send her to rehab facility. cc: Justin Tyson MD MTDD
[2019-03-18] MEDS ORDERED: LASIX IV ONE (12:27)
--- NOTE | 2019-03-18 13:15 | Diag Imaging Result Doc PS360 ---
EXAM: CHEST-1 VIEW - 03/18/2019 HISTORY: increased wheezing TECHNIQUE: One view chest COMPARISON: 03/18/2019 FINDINGS: The patient is less rotated compared to prior, with apparent associated decrease artifact at the left infrahilar region. Inspiration is mildly shallow. There is mild infiltrate or atelectasis at the medial left base. There are no other acute changes identified. IMPRESSION: Mildly shallow inspiration. Mild infiltrate or atelectasis at medial left base. Electronically signed by Tarik Alvarez 03/18/2019 1:12 PM
--- NOTE | 2019-03-18 14:13 | PULMONOLOGY PROGRESS NOTE ---
DATE: 03/18/2019 SUBJECTIVE: The patient is awake, alert, and conversant. She reports she is urinating with some leakage around her catheter. OBJECTIVE: Vital Signs: The patient has been afebrile for the last 24 hours. Blood pressure 155/73, heart rate 70, respiratory rate 20, oxygen saturation 100%. HEENT: Pupils are equal and reactive. Oropharynx appears clear. Neck is supple. Chest reveals good air entry bilaterally without wheezing or rhonchi. Cardiac: S1, S2. Abdomen is obese and soft. Extremities are without edema. DIAGNOSTIC STUDIES: Chest x-ray reveals elevation of the right hemidiaphragm with mild atelectasis at the left base. IMPRESSION: A 63-year-old with: 1. Acute hypoxemic respiratory failure. 2. Acute cor pulmonale, which has resolved. 3. Minor atelectasis in the left base. 4. Morbid obesity. RECOMMENDATION: 1. Continue bronchial hygiene. 2. Continue physical therapy. 3. Wean oxygen as tolerated. 4. Anticipate transition to oral anticoagulation. cc: Adeel Shukla MD
--- NOTE | 2019-03-18 16:17 | CARDIOLOGY PROGRESS NOTE ---
DATE: 03/18/2019 SUBJECTIVE: Patient is awake and fully oriented. She denies any chest discomfort. She is being diuresed with intravenous Lasix. OBJECTIVE: Blood pressure 155/73, heart rate 70 and regular, oxygen saturation 97% on nasal cannula oxygen. Jugular venous distention cannot be appreciated. Chest is clear to auscultation bilaterally. Cardiac exam reveals a regular rate and rhythm without appreciable murmur or gallop. Extremities demonstrate mild edema. DIAGNOSTIC STUDIES: Includes a white blood cell count of 15.6 hematocrit 33.3, hemoglobin 10.7, platelet count 207,000. Sodium 136, potassium 4.3, chloride 99, carbon dioxide 27, BUN 32, creatinine 2.0, glucose 112. IMPRESSION: 1. Recent shock with echocardiographic evidence of right ventricular failure and moderate pulmonary hypertension. Given recent surgery, patient treated for possible pulmonary embolus with thrombolytic therapy and anticoagulation. There is also the possibility of chronic pulmonary hypertension possibly related to obstructive sleep apnea and right ventricular failure following abdominal surgery and sedative medications. Patient has improved clinically. 2. Acute renal failure precipitated by shock and renal hypoperfusion. Patient is improving. 3. Leukocytosis. Etiology not clear. RECOMMENDATIONS: 1. Continue supportive care with physical therapy and pulmonary toilet/incentive spirometry. 2. Continue intravenous heparin. If renal function continues to improve, consider transitioning to Lovenox. 3. Obtained urinalysis. Consider possible catheter-related urinary tract infection. cc: Jackson Wagner MD
[2019-03-18 18:45] LABS: URINE SOURCE CATH
[2019-03-18 18:56] LABS: BILIRUBIN URINE NEGATIVE (NEGATIVE); BLOOD URINE TRACE (NEGATIVE); COLOR STRAW; GLUCOSE URINE NEGATIVE (NEGATIVE); KETONE URINE NEGATIVE (NEGATIVE); LEUKOCYTES URINE NEGATIVE (NEGATIVE); NITRITE URINE NEGATIVE (NEGATIVE); PROTEIN URINE TRACE mg/dL (NEGATIVE); SP GRAVITY URINE 1.005; TURBIDITY URINE CLEAR (CLEAR); UROBILINOGEN URINE NORMAL (NORMAL)
[2019-03-18] MEDS ORDERED: CALMOSEPTINE OINTMENT TOP PRN (18:56)
[2019-03-18 18:58] LABS: UR EPITHELIAL CELLS <10 /HPF (<10); URINE BACTERIA NEGATIVE /HPF; URINE WBC <10 /HPF (<10)
[2019-03-18 19:08] LABS: URINE CASTS NONE SEEN; URINE CRYSTALS NONE SEEN; URINE SMALL ROUND CELLS NONE SEEN; URINE YEAST PRESENT
[2019-03-19] MEDS: HEPARIN 25,000 UNITS/D5W 25,000 UNIT/250 ML IV.SOLN IV SCH ×3 (00:51→20:58)
[2019-03-19] MEDS: MAXIPIME 1 GM in NS 50 ML IV SCH (02:04)
[2019-03-19] MEDS: ZYVOX 600 MG/D5W 600 MG/300 ML IVPB IV SCH (02:36)
[2019-03-19 04:40] LABS: ALLEN TEST YES; BE 2.4 mmoll (-3.0-3.0); BLOOD TYPE ARTERIAL; HCO3-(ACT) 26.8 mmoll (20.0-26.0); METHB 1.1 % (0.0-1.5); O2(CT) 14.3 mL/dL (15.0-23.0); O2HB 96.5 % (95.0-99.0); PO2(98.6) 98 mmHg (60-100); SAMPLE BLOOD; SAO2 99.3 % (95.0-100.0); THB 10.4 g/dL (11.5-17.4); pH(98.6) 7.32 (7.35-7.45)
[2019-03-19 04:41] LABS: MODALITY CANNULA
[2019-03-19 04:45] LABS: PCO2(98.6) 57 mmHg (35-45)
[2019-03-19] MEDS: SYNTHROID PO SCH (06:25)
[2019-03-19 07:31] LABS: BASO# 0.02 X1000 (0.0-0.2); BASO% 0.1 % (0.0-0.8); EOS# 0.17 X1000 (0.0-0.7); EOS% 1.1 % (0.0-10.0); HEMATOCRIT 33.2 % (37.0-47.0); HEMOGLOBIN 10.4 g/dL (12.0-16.0); IMM GRAN# 0.12 X1000 (0.0-0.04); IMM GRAN% 0.8 % (0.0-0.5); LYMPH# 3.39 X1000 (1.2-3.4); MCH 27.4 PG (27-31); MCHC 31.3 g/dL (33-37); MCV 87.4 FL (81-99); MONO# 0.94 X1000 (0.11-0.59); MONO% 6.1 % (1.7-9.3); MPV 9.4 FL (7.4-10.4); NEUT# 10.78 X1000 (1.4-6.5); NEUT% 69.9 % (42.2-75.2); PLT 192 X1000 (130-400); RDW 15.2 % (11.5-14.5); WBC 15.42 X1000 (4.8-10.8)
--- NOTE | 2019-03-19 07:38 | Diag Imaging Result Doc PS360 ---
EXAM: CHEST-PORTABLE INDICATION: vent protocol TECHNIQUE: One view COMPARISON: 03/18/2019 FINDINGS: The right central line is in stable position. There appears to be stable mild focal scarring at the right lung base. The central vasculature appears slightly more prominent than the previous study suggesting likely mild pulmonary venous congestion. No new consolidation is identified, otherwise. Cardiac silhouette is stable. IMPRESSION: Slightly increased prominence of central vasculature suggesting mild pulmonary venous congestion. Electronically signed by Trey Couch 03/19/2019 7:35 AM
[2019-03-19] MEDS: DUONEB (A & A) INH PRN ×3 (07:40→19:45)
[2019-03-19 07:41] LABS: CREATININE 2.4 mg/dL (0.5-0.9); POTASSIUM 4.4 mmol/L (3.5-5.1)
[2019-03-19] MEDS: MUCOMYST 20% INH SCH ×2 (07:41→19:45)
[2019-03-19] MEDS: NORVASC PO SCH ×2 (09:00→20:45)
[2019-03-19] MEDS: NEURONTIN PO SCH ×2 (09:00→20:45)
[2019-03-19] MEDS: LOPRESSOR PO SCH ×2 (09:00→20:45)
[2019-03-19] MEDS: SOLU-CORTEF IV SCH ×2 (09:00→20:44)
[2019-03-19] MEDS ORDERED: LASIX IV ONE ×2 (10:06→18:53)
--- NOTE | 2019-03-19 10:38 | NEPHROLOGY PROGRESS NOTE ---
DATE: 03/19/2019 TIME SEEN: 06. SUBJECTIVE: Ms. Palacios is resting quietly in bed. Head of the bed is slightly elevated. She denies any chest pain or increased work of breathing. States that she would like to go home soon. LABORATORY DATA: Her sodium is 139, potassium 4.4, chloride 100, CO2 of 20, BUN 39, creatinine 2.4, glucose 96. Her anion gap is 10. Her calcium is 9. White count 15.4, hemoglobin 10.4, hematocrit 33.2, with a platelet count of 192,000. Her PTT is 112.6. ABGs show pH 7.32, CO2 of 59, PO2 of 98, bicarb 26.8, with a lactate of 1.6 on 3 L nasal cannula. OBJECTIVE: Most Recent Vital Signs: Temperature 98.9 degrees, blood pressure 169/56, heart rate 68, respirations 16. She is on 3 L nasal cannula. Last recorded saturation 98%. She has had 880 in. She has had 800 out to Mack catheter. General: This is a 63-year-old white female, resting quietly in bed. Skin: Warm and dry. HEENT: Normocephalic, atraumatic. Conjunctivae pale pink. She has KAM. Mucous membranes are dry. Neck: Supple. Trachea midline. No evidence of JVD. Cardiovascular: She is regular rate and rhythm. She is without murmur or gallop. Lungs: Clear to auscultation bilaterally. Equal excursion on O2. Abdomen: Large, round, soft, nontender. Positive bowel sounds. Genitourinary: Not inspected. The patient has Mack catheter in place with adequate urine out. Extremities: Continues with 2+ lower extremity edema. No clubbing or cyanosis. Neurological: Alert and oriented x3. Integumentary: The patient has a tunnel catheter to her right IJ. ASSESSMENT AND PLAN: 1. Acute kidney injury. The patient has good urine output. We will hold on dialysis today. Her BUN is just slightly elevated from 2 to 2.4 today. We will monitor her labs in the morning to determine if she needs any further dialysis. We will continue to monitor and follow. 2. Electrolytes and acid-base balance. These are acceptable. 3. Anemia. This is low, but stable. 4. Sepsis. The patient remains on renal dosed antibiotics, followed by the primary care. I would like to thank you for allowing us to follow with this patient. Dictated by COURTNEY High for Bladimir Key MD Face to face encounter, data reviewed, discussed with Randal Larsen on 03/19/19. I agree with the above assessment and plan of care. cc: COURTNEY High MD [facility]
--- NOTE | 2019-03-19 14:25 | PROGRESS NOTE ---
DATE: 03/19/2019 SUBJECTIVE: Patient reports feeling fine yesterday afternoon. She was complaining of some shortness of breath so she received 1 dose of Lasix. This morning also Nephrology has ordered Lasix too. She reports peeing a lot, but definitely feeling less short of breath this morning. OBJECTIVE: Vital Signs: Temperature 97.5 degrees, heart rate 67, respiratory rate 18, blood pressure 158/71, and O2 saturation 98% on 2 L nasal cannula. General: This is a chronically ill appearing 63-year-old obese female looking older than her stated age lying in bed in no acute distress. HEENT: Head is normocephalic, atraumatic. Mucous membranes moist. Neck: No JVD noted. No carotid bruits. No lymphadenopathy. No thyromegaly. Cardiovascular: S1, S2 heard. No murmurs, gallops, or rubs. Regular rate and rhythm. Respiratory: Exam with minimal rhonchi still noted in both pulmonary bases, and also anterior as well. Patient is not using any accessory muscles or having work up breathing. Abdomen: Soft. A little bit distended, but nontender to palpation. Bowel sounds present. No organomegaly. Extremities: No clubbing, cyanosis, or edema. Peripheral pulses present in both legs. Neurological: Patient is alert and oriented x3. Moves all 4 extremities. LABORATORY DATA: WBC 15.42, hemoglobin 10.4, hematocrit 33.2 and platelets 192,000. ABG shows pH 7.32, with pCO2 57, PO2 98 that was on cannula 3 L/minute. BMP remarkable for creatinine of 2.4. ASSESSMENT AND PLAN 1. Acute respiratory failure. The patient yesterday had an episode where she started complaining of shortness of breath. We ordered an x-ray that basically showed slightly increased prominence of central vasculature suggesting mild pulmonary venous congestion. She responded well to Lasix given yesterday 80 mg and today 60 mg. She is making a good amount of urine so at this point we will continue to monitor. 2. Aspiration pneumonia. Patient has received Zyvox and cefepime for 10 days so we are going to stop antibiotics today. There has been an elevation of white cell count of 15,000 over the last 2 days. We will continue to monitor CBC, but I do not think we need to continue with antibiotics. 3. Hypertension. The patient with amlodipine 5 mg p.o. b.i.d. and metoprolol 25 mg p.o. b.i.d. Blood pressure is well controlled. We will continue with same management. 4. Acute cor pulmonale possibly related to pulmonary embolus status post thrombolytic treatment. The patient continues to be on heparin drip. The V/Q scan that we have ordered is negative and is showing low probability for PE. Cardiology mentioned to change medications to Lovenox or something p.o. whenever renal function is stabilized. At this point, as per as Cardiology consultation, we will order limited echocardiogram. 5. Acute on chronic kidney injury. Nephrology is following this patient. Because of hypotension and acute tubular necrosis, the patient was receiving dialysis but today they said that they are going to hold considering good urine output and also renal function. At this point, we will see if Dr. Key decides to continue with dialysis or just stop it. We will follow recommendations. 6. Nutritional support. Patient is on regular diet. 7. Disposition. At this point, we will continue to monitor this patient closely. bulk intake worker consulted for rehab placement. cc: Justin Tyson MD MTDD
[2019-03-19 15:16] LABS: URINE SOURCE CATH
--- NOTE | 2019-03-19 15:16 | CARDIOLOGY PROGRESS NOTE ---
DATE: 03/19/2019 SUBJECTIVE: The patient denies shortness of breath or chest discomfort. She did not wear BiPAP last night. She has received additional intravenous Lasix due to emergence of increased lower extremity swelling. OBJECTIVE: Blood pressure 158/71, heart rate 67, oxygen saturation 98% on nasal cannula oxygen at 2 L/minute. Jugular venous distention cannot be appreciated. Chest is clear to auscultation. Cardiac exam reveals a regular rate and rhythm without appreciable murmur, rub, or gallop. Extremities demonstrate mild to moderate pretibial edema. LABORATORY DATA: Includes a white blood cell count of 15.42, hematocrit 33.2, hemoglobin 10.4, platelet count 192,000. Arterial blood gas with a pH of 7.32, pCO2 of 57, PO2 of 98 on nasal cannula oxygen at 3 L/minute. Sodium 139, potassium 4.4, chloride 100, carbon dioxide 29, BUN 39, creatinine 2.4, glucose 96. IMPRESSION: 1. Recent shock with echocardiographic evidence of right ventricular failure and moderate pulmonary hypertension. Patient treated for possible pulmonary embolus with thrombolytic therapy and anticoagulation. There is also a possibility of chronic pulmonary hypertension related to obstructive sleep apnea and right ventricular failure exacerbated following abdominal surgery and sedative medications. The patient is improved clinically. 2. Acute renal failure, slowly resolving. 3. Strongly suspect obstructive sleep apnea or obesity. RECOMMENDATIONS: 1. Agree with diuresis with intravenous Lasix. 2. Continue intravenous heparin today. Consider transition to Lovenox tomorrow. 3. BiPAP to be utilized at night. cc: Jackson Wagner MD
[2019-03-19 15:24] LABS: BILIRUBIN URINE NEGATIVE (NEGATIVE); BLOOD URINE SMALL (NEGATIVE); COLOR STRAW; GLUCOSE URINE NEGATIVE (NEGATIVE); KETONE URINE NEGATIVE (NEGATIVE); LEUKOCYTES URINE NEGATIVE (NEGATIVE); NITRITE URINE NEGATIVE (NEGATIVE); PROTEIN URINE TRACE mg/dL (NEGATIVE); SP GRAVITY URINE 1.004; TURBIDITY URINE CLEAR (CLEAR); UROBILINOGEN URINE NORMAL (NORMAL)
[2019-03-19 15:27] LABS: UR EPITHELIAL CELLS <10 /HPF (<10); URINE BACTERIA NEGATIVE /HPF; URINE RBC <10 /HPF (<10); URINE WBC <10 /HPF (<10)
--- NOTE | 2019-03-19 16:46 | GENERAL SURGERY PROGRESS NOTE ---
DATE: 03/19/2019 SUBJECTIVE: Ms. Palacios is now 12 days after laparoscopic cholecystectomy and she initially did well but then returned to the hospital on the second postoperative day poorly conscious. She has been felt to have possible pulmonary embolus with cardiac dysfunction. OBJECTIVE: General: She now is awake and alert. Vital Signs: She is afebrile. Heart rate 77, blood pressure 172/65. LABORATORY DATA: Her white count is 15,400, hemoglobin 10. Her BUN is 39, creatinine 2.4. She has had temporary dialysis but none today. ASSESSMENT: She is awake alert and oriented. Her white count is around 15,000. Reviewed her CT scan which looked fine. I would continue with current therapy. No operative intervention is recommended at this time. cc: Vic Ohara MD
--- NOTE | 2019-03-19 21:14 | PULMONOLOGY PROGRESS NOTE ---
DATE: 03/19/2019 SUBJECTIVE: Patient is awake, alert, and conversant. She is without specific complaints. She denies shortness of breath. No dialysis was performed today. OBJECTIVE: Vital Signs: Blood pressure 158/66, heart rate 77, respiratory rate 18, oxygen saturation 98% on 2 L per nasal cannula. HEENT: Pupils are equal and reactive. Oropharynx appears clear. Neck: Supple. Chest: Reveals crackles in both lung bases. Cardiac: S1, S2. Abdomen: Soft, with good bowel sounds. Extremities: Reveal trace edema. LABORATORIES: Chest x-ray reveals elevation of the right hemidiaphragm, generous cardiac silhouette, with mild pulmonary vascular congestion. White blood count 15.42, hemoglobin 10.4, platelet count 192,000. Arterial blood gas reveals a pH 7.32, pCO2 of 57, pO2 of 98. IMPRESSION: A 63-year-old with: 1. Acute hypoxemic respiratory failure. 2. Acute cor pulmonale. 3. Mild fluid overload. 4. Acute renal failure, with improving urine output. 5. Morbid obesity. PLAN: 1. Continue bronchial hygiene. 2. Continue physical therapy. 3. Attempt to balance intake and output, or make patient slightly negative. 4. Transition to oral anticoagulation with improvement in renal function. cc: Adeel Shukla MD
--- NOTE | 2019-03-19 23:52 | ECHO REPORT ---
ORDER DATE: 03/19/2019 SUMMARY: 1. Limited 2 dimensional echocardiography was performed to follow up ventricular function. 2. Aortic valve appears without evidence of structural abnormality and opens normally on 2- dimensional images. Mitral and tricuspid valves are without gross structural abnormality. Doppler not performed. Aortic root is grossly normal in size. 3. Normal left ventricular dimensions suggested. Estimated left ejection fraction appears to be approximately 65%. No regional wall motion abnormalities evident. Left atrium, right atrium, right ventricle are grossly normal in size. Right ventricular systolic function appears to be grossly normal. 4. No pericardial effusion. cc: MD Justin Braun MD
[2019-03-20] MEDS: HEPARIN 25,000 UNITS/D5W 25,000 UNIT/250 ML IV.SOLN IV SCH (02:48)
[2019-03-20 05:40] LABS: BASO# 0.02 X1000 (0.0-0.2); BASO% 0.2 % (0.0-0.8); EOS% 1.6 % (0.0-10.0); HEMATOCRIT 30.1 % (37.0-47.0); HEMOGLOBIN 9.6 g/dL (12.0-16.0); IMM GRAN# 0.09 X1000 (0.0-0.04); IMM GRAN% 0.7 % (0.0-0.5); LYMPH# 3.08 X1000 (1.2-3.4); LYMPH% 23.9 % (20.5-51.1); MCHC 31.9 g/dL (33-37); MCV 87.8 FL (81-99); MONO# 0.64 X1000 (0.11-0.59); MPV 9.5 FL (7.4-10.4); NEUT# 8.87 X1000 (1.4-6.5); NEUT% 68.6 % (42.2-75.2); PLT 170 X1000 (130-400); RBC 3.43 XMIL (4.2-5.4)
[2019-03-20 06:08] LABS: POTASSIUM 3.9 mmol/L (3.5-5.1)
[2019-03-20] MEDS: SYNTHROID PO SCH (06:08)
[2019-03-20] MEDS: MUCOMYST 20% INH SCH ×2 (07:50→19:45)
[2019-03-20] MEDS: DUONEB (A & A) INH PRN ×2 (07:50→19:45)
--- NOTE | 2019-03-20 08:02 | Diag Imaging Result Doc PS360 ---
CHEST-PORTABLE - 03/20/2019 INDICATION: abnormal exam COMPARISON: 03/19/2019 FINDINGS: The right central line has been removed. Stable low lung volumes. Stable cardiomegaly with pulmonary vascular congestion. Stable linear atelectasis in the lung bases. IMPRESSION: Central line removed. Otherwise no significant change from prior. Electronically signed by Rob Mcmullen 03/20/2019 8:00 AM
[2019-03-20] MEDS: NEURONTIN PO SCH ×2 (09:32→20:33)
[2019-03-20] MEDS: SOLU-CORTEF IV SCH (09:32)
[2019-03-20] MEDS: LOPRESSOR PO SCH ×2 (09:32→20:33)
[2019-03-20] MEDS: NORVASC PO SCH ×2 (09:32→20:33)
--- NOTE | 2019-03-20 09:41 | NEPHROLOGY PROGRESS NOTE ---
DATE: 03/20/2019 DATE AND TIME SEEN: 03/20/2019 at 0640. SUBJECTIVE: Ms. Palacios is resting quietly in bed. She is just getting off the bedpan in bed, when we walked in the room. Her labs have returned and she states that she is feeling well. OBJECTIVE: VITAL SIGNS: Most recent are temperature 97.4 degrees, blood pressure 137/47, heart rate 58, respirations 14. She is currently on 2 L nasal cannula, last recorded saturation 100% while on BiPAP. She has had 550 in, she has had 2300 out to Mack catheter. LABORATORY DATA: Sodium 142, potassium 3.9, chloride 101, CO2 31, BUN 44, creatinine 2, glucose 99, anion gap a 10 with a calcium of 9. White count 12.9, hemoglobin 9.6, hematocrit 30.1 with a platelet count of 170,000. PHYSICAL EXAMINATION: General: This is a 63-year-old white female, resting quietly in bed. Skin: Warm and dry. HEENT: Normocephalic, atraumatic. Conjunctivae pale pink. She has KAM. Mucous membranes dry. Neck: Supple, trachea midline. She has no JVD. Cardiovascular: Regular rate and rhythm. She is without murmur or gallop. Lungs: Clear to auscultation bilaterally. Equal excursion though slightly coarse. Abdomen: Soft, nontender. Positive bowel sounds. Genitourinary: No edema. Mack catheter is in place. Extremities: Continue with 2+ lower extremity edema from pretibial up into the mid thigh. Integumentary: Patient has a Vas- Cath to her right groin. We have removed this with Dr. Key present with an RN at the bedside. We have requested 10 minute pressure, to recheck for 1 minute. If this is stable, that is fine. If it starts to bleed, she is to apply another 10 minutes. Patient does remain on heparin. ASSESSMENT AND PLAN: 1. Acute kidney injury. Patient has appeared to start recovery. Her creatinine is at 2 without dialysis in 48 hours. Adequate urine output at 2.3 L. No indications for further intervention. Her Vas-Cath has been removed per Dr. Key today. 2. Electrolytes, acid-base balance and anemia. These are all acceptable. 3. Sepsis. Patient remains on renal dosed antibiotics. 4. Acute respiratory failure. This has continued to improve. Dr. Shukla continues to monitor and follow. 5. Acute cor pulmonale, possibly related to pulmonary embolism. The patient remains on IV heparin with possible starting of transition to p.o. anticoagulation today. We will defer to Dr. Shukla and the primary care team. I would to thank you for allowing us to follow with this patient. Dictated by COURTNEY High for Bladimir Key MD Face to face encounter, data reviewed, discussed with Randal Larsen on 03/20/19. I agree with the above assessment and plan of care. cc: COURTNEY High MD [facility]
[2019-03-20] MEDS ORDERED: LASIX IV ONE (13:12)
[2019-03-20] MEDS: ELIQUIS PO SCH ×2 (13:54→20:33)
[2019-03-20] MEDS: APRESOLINE IV PRN (16:32)
[2019-03-20] MEDS ORDERED: IMODIUM PO ONE (17:41)
--- NOTE | 2019-03-20 18:13 | PROGRESS NOTE ---
DATE: 03/20/2019 SUBJECTIVE: The patient complains of diarrhea. She states that she has been having it for the last day or two and she has gone at least 6 times today. She also complains of swelling in her legs. OBJECTIVE: Vital Signs: Temperature 97.7, blood pressure 187/86, heart rate 79, respirations 16. O2 sats 98% on 1 L nasal cannula. Urine output 3 L. General: This is a chronically ill- appearing morbidly obese female lying in bed in no acute distress. Heart: S1, S2 normal. Lungs: Equal air entry bilaterally. No wheezing. No rales. Abdomen: Positive bowel sounds. Soft, nontender, nondistended. Extremities: 1+ edema bilaterally. Neurologic: The patient is alert and oriented x 3. LABS: White blood cell count 12, hemoglobin 9.6, hematocrit 30, platelets 170,000. Sodium 142, potassium 3.9, chloride 101, CO2 31, BUN 44, creatinine 2, glucose 99. ASSESSMENT AND PLAN: 1. Acute hypoxemic respiratory failure. Slowly improving. 2. Acute cor pulmonale. Aware. 3. Suspected pulmonary embolism. The patient has been transitioned to Eliquis. We will monitor her closely. 4. Acute kidney injury. Improved. The patient is off of dialysis and her Vas catheter was removed today. Nephrology is following. The patient's urine output remains adequate. 5. Morbid obesity. The patient has been counseled about weight loss and proper diet. 6. Diarrhea. The stool for C difficile was negative. We will start the patient on Imodium as needed. 7. Anemia. Will monitor the hemoglobin and hematocrit closely. 8. Leukocytosis. Improved. 9. Hypothyroidism. Continue on Synthroid. 10. Vitamin D deficiency. Continue vitamin D replacement. 11. Disposition. The patient will have a bed available at [facility] in [place] on . Continue with physical therapy. cc: Natacha Gardner MD MTDD
[2019-03-20] MEDS: QUESTRAN LIGHT PO SCH (20:33)
--- NOTE | 2019-03-20 21:50 | PULMONOLOGY PROGRESS NOTE ---
DATE: 03/20/2019 SUBJECTIVE: The patient is awake, alert, and conversant. She continues to improve. She denies shortness of breath at rest. She continues to have excellent urine output. She is having some diarrhea. OBJECTIVE: Vital Signs: The patient has been afebrile for the last 24 hours. Blood pressure 160/68, heart rate 78, respiratory rate 18, oxygen saturation 98% on 1 L per nasal cannula. HEENT: Pupils are equal and reactive. Oropharynx is clear. Neck: Supple. Chest: Reveals decreased breath sounds, right base. Cardiac: S1, S2. Abdomen: Soft without hepatosplenomegaly. Extremities: Decreasing edema. LABORATORIES: Chest x-ray reveals mild elevation of the right hemidiaphragm with mild cardiomegaly and vascular congestion. White blood count 12.9, hemoglobin 9.6, platelet 170,000. Sodium 142, potassium 3.9, chloride 101, bicarbonate 31, BUN 44, creatinine 2.0. IMPRESSION: A 63-year-old with: 1. Acute hypoxemic respiratory failure. 2. Acute cor pulmonale, likely related to pulmonary embolus. 3. Mild fluid overload. 4. Acute renal failure, with continued improvement. 5. Morbid obesity. RECOMMENDATIONS: 1. Agree with transitioning patient to oral anticoagulation as her glomerular filtration rate improves. 2. Continue bronchial hygiene. 3. Continue physical therapy. 4. Continue to wean oxygen. 5. Agree with plans to transfer patient for a rehabilitation stay when a bed is available. cc: Adeel Shukla MD
[2019-03-21] MEDS: IMODIUM PO PRN ×2 (00:02→15:21)
[2019-03-21] MEDS: SYNTHROID PO SCH (06:04)
[2019-03-21] MEDS: DUONEB (A & A) INH PRN (07:38)
[2019-03-21] MEDS: MUCOMYST 20% INH SCH (07:38)
[2019-03-21 07:51] VITALS: BP 159/54
[2019-03-21 09:14] LABS: HEMATOCRIT 31.3 % (37.0-47.0); HEMOGLOBIN 9.7 g/dL (12.0-16.0); MCH 27.9 PG (27-31); MCV 89.9 FL (81-99); MPV 9.2 FL (7.4-10.4); RBC 3.48 XMIL (4.2-5.4); RDW 15.3 % (11.5-14.5); WBC 13.55 X1000 (4.8-10.8)
[2019-03-21 09:47] LABS: ALBUMIN 3.3 g/dL (3.5-5.0); CALCIUM 8.8 mg/dL (8.8-10.2); CREATININE 1.6 mg/dL (0.5-0.9); PHOSPHORUS 3.6 mg/dL (2.7-4.5); POTASSIUM 2.7 mmol/L (3.5-5.1)
[2019-03-21] MEDS ORDERED: KLOR-CON PO ONE (09:52)
[2019-03-21] MEDS: QUESTRAN LIGHT PO SCH (10:07)
[2019-03-21] MEDS: NEURONTIN PO SCH (10:08)
[2019-03-21] MEDS: LOPRESSOR PO SCH (10:08)
[2019-03-21] MEDS: ELIQUIS PO SCH (10:08)
[2019-03-21] MEDS: NORVASC PO SCH (10:08)
--- NOTE | 2019-03-21 10:22 | NEPHROLOGY PROGRESS NOTE ---
DATE: 03/21/2019 SUBJECTIVE: Ms. Palacios is resting quietly in bed. States that she is feeling great and would love to have her Mack catheter out. OBJECTIVE: VITAL SIGNS: Her most recent vital signs, last temperature 97.7 degrees. Her blood pressure is 153/59, heart rate 69. Respirations are 14. She is on 1 liter nasal cannula. Last recorded saturation is 99%. She has had 300 mL in. She has had 3.625 mL out to Mack catheter. LABS: These are currently pending this a.m. Previous potassium 3.9 with a BUN of 44, creatinine of 2. Previous hemoglobin 9.6 on the . GENERAL: This is a 63-year-old white female resting quietly in bed. Head of the bed is elevated. She appears in no acute distress. SKIN: Warm and dry. HEENT: Normocephalic, atraumatic. Conjunctivae pale pink. She has KAM. Mucous membranes are dry. NECK: Supple. Trachea midline. No JVD. CARDIOVASCULAR: Regular rate and rhythm. She is without murmurs, rubs or gallops. LUNGS: Clear to auscultation bilateral. Equal excursion on O2. ABDOMEN: Large, round, soft, nontender. Positive bowel sounds. GENITOURINARY: Not inspected. Mack catheter is in place. Patient is having complaints of bladder spasms. EXTREMITIES: The patient continues to have trace pretibial edema. This is improved in the last 24- 48 hours. Urine output has improved. INTEGUMENTARY: No rashes or lesions evident. NEUROLOGICAL: Alert and oriented x3. ASSESSMENT AND PLAN: 1. Acute kidney injury. Patient's BUN and creatinine have continued to improve. She is on the road to recovery. Her Vas-Cath was removed yesterday. Labs are currently pending today. She has adequate urine output documented and no indications for intervention. 2. Sepsis with renal dosed antibiotics. Patient states she is feeling much better. We will remove her Mack catheter and have patient get up to bedside commode with assist. Increase some of her activity. 3. Electrolytes and acid base balance and anemia. These are all pending. Stable in the past. 4. Acute respiratory failure. This continues to improve. States that she is on 1 liter and her O2 saturations were good. We will attempt O2 wean protocol. 5. Acute cor pulmonale. The patient has a pulmonary embolism. She has been weaned off her heparin. She is currently on p.o. anticoagulation therapy. This is being followed by Dr. Shukla and the primary care team. I would like to thank you for allowing us to follow with this patient. Dictated by COURTNEY High for Bladimir Key MD Face to face encounter, data reviewed, discussed with Randal Larsen on 03/21/19. I agree with the above assessment and plan of care. cc: COURTNEY High MD [facility]
--- NOTE | 2019-03-21 11:44 | DISCHARGE SUMMARY ---
ADMISSION DATE: 03/09/2019 DISCHARGE DATE: 03/21/2019 FINAL DISCHARGE DIAGNOSES: 1. Acute hypoxemic respiratory failure. 2. Metabolic encephalopathy. 3. Acute kidney injury requiring temporary hemodialysis. 4. Morbid obesity. 5. Anxiety disorder. 6. Vitamin D deficiency. 7. Leukocytosis. 8. Hypokalemia. 9. Suspected pulmonary embolism. 10. Cor pulmonale. 11. Hypothyroidism. 12. Hypertension. CONSULTATIONS: 1. Nephrology consultation with Dr. Key. 2. Cardiology consultation with Dr. Wagner. 3. Gastroenterology consultation with Dr. Frausto. HOSPITAL COURSE: Ms Palacios is a 63-year-old female with a history of multiple medical problems, who initially presented to the ER in respiratory distress and confused. On admission, there was concern about possible pneumonia with sepsis as well as over-medication. The patient was admitted to the hospitalist service and admitted to the ICU. The patient was also noted to be in acute renal failure. There was also concern about a possible pulmonary embolism because the patient exhibited signs of cor pulmonale. The administrative liaison, engineering manager, and district manager in training were all consulted on the patient's case. The patient's renal function did not improve and so a Vas-Cath catheter was placed and the patient was started on dialysis. The patient was treated with broad- spectrum antibiotics, and blood, urine, and sputum cultures came back negative for any source of infection. With the initiation of dialysis, the patient's renal function improved, and her mental status improved as well. The patient eventually improved and was transferred to the medical floor. The patient had a lower extremity venous Doppler done that showed no evidence of DVT. Also, a V/Q scan was done that was shown to be low probability for pulmonary embolus; however, it was decided that the patient should remain on anticoagulation. The patient continued to improve and was ultimately transferred to the medical floor. The patient was initially on a heparin drip which was transitioned to Eliquis once the patient's renal function stabilized. The patient continued to improve. The patient was seen by Physical Therapy, who recommended inpatient rehabilitation. The patient's dialysis catheter was removed, and her renal function continued to improve. The patient is currently stable for transfer to inpatient rehabilitation. DISCHARGE MEDICATIONS: 1. Eliquis 10 mg oral twice a day x6 days. 2. Imodium 2 mg oral every 6 hours p.r.n. 3. Lopressor 25 mg oral twice a day. 4. Norvasc 5 mg oral twice a day. 5. Vitamin D 50,000 units oral every . 6. Eliquis 5 mg oral twice a day. This dosage will be started on 03/27/2019. 7. Gabapentin 600 mg oral twice a day. 8. Synthroid 150 mcg oral daily. 9. Doxepin 10 mg oral at bedtime. 10. Cymbalta 30 mg oral daily. 11. [place] 10 mg 1 tablet oral every 6 hours p.r.n. for pain. DISCHARGE DIET: Low sodium, low cholesterol diet. ACTIVITY: As tolerated. FOLLOWUP INSTRUCTIONS: 1. The patient will need to follow up with Dr. Key in 2 weeks for repeat BMP. 2. The patient will also need to follow up with Dr. Wagner as scheduled by his clinic. 3. The patient will need to follow up with Dr. Shukla in 2 weeks. cc: Natacha Gardner MD
== END 2019-03-21 15:57 | DRG 207 ==
LOC: SUPCPDRO → ED 21:46 → EDIPHOLD 03-09 03:47 → SUATTDRO 03-09 03:47 → ICU 03-09 05:36 → 3S 03-16 15:24 → 3N 03-18 10:49
PROVIDERS: ATTEND Internal Medicine